=== PATIENT | female | born 1960 | race Caucasian/White ===

== ENCOUNTER 2017-01-31 11:22 | Inpatient (IN) ==
[2017-01-31] MEDS ORDERED: ZOFRAN IV ONE (11:49)
[2017-01-31] MEDS ORDERED: NS 1,000 ML IV ONE (11:49)
[2017-01-31] MEDS ORDERED: DILAUDID IV ONE (11:49)
--- NOTE | 2017-01-31 12:42 | Diag Imaging Result Doc PS360 ---
EXAM: FLAT/UPRIGHT ABD/1 VIEW CHEST HISTORY: Abd pain TECHNIQUE: Three views COMPARISON: 01/30/2017 FINDINGS: The lungs are well expanded. There is a right-sided portacatheter. No pneumothorax. No pneumonia. No free air beneath the diaphragm. There are coils in the upper right abdomen. No bowel obstruction. No organomegaly. Mild scoliosis. There are small mid right abdominal calcifications believed to be renal stones. Large dense nodules in the right upper quadrant. These correspond to calcified lesions within the liver on the recent CT. IMPRESSION: 1.Right upper quadrant large calcifications corresponding to calcified nodules in the liver 2.Small right abdominal calcifications may be renal stones or could be in small calcified nodules in the abdomen Electronically signed by Sean Cerrato 01/31/2017 12:40 PM
[2017-01-31 14:11] LABS: MANUAL DIFF NEEDED? NO
[2017-01-31 14:12] LABS: URINE MICRO REVIEW NEEDED? NO; URINE SOURCE CLEAN CATCH
[2017-01-31 14:20] LABS: BASO% 0.1 % (0.0-0.8); BILIRUBIN URINE NEGATIVE (NEGATIVE); BLOOD URINE TRACE (NEGATIVE); COLOR YELLOW; EOS# 0.01 X1000 (0.0-0.7); EOS% 0.1 % (0.0-10.0); GLUCOSE URINE NEGATIVE (NEGATIVE); HEMATOCRIT 41.1 % (37.0-47.0); HEMOGLOBIN 13.1 g/dL (12.0-16.0); LEUKOCYTES URINE MODERATE (NEGATIVE); LYMPH# 0.62 X1000 (1.2-3.4); LYMPH% 5.8 % (20.5-51.1); MCH 31.3 PG (27-31); MCHC 31.9 g/dL (33-37); MCV 98.1 FL (81-99); MONO# 1.37 X1000 (0.11-0.59); MONO% 12.9 % (1.7-9.3); MPV 9.6 FL (7.4-10.4); NEUT% 81.1 % (42.2-75.2); NITRITE URINE NEGATIVE (NEGATIVE); PLT 206 X1000 (130-400); PROTEIN URINE NEGATIVE (NEGATIVE); RBC 4.19 XMIL (4.2-5.4); SP GRAVITY URINE 1.011; TURBIDITY URINE HAZY (CLEAR); UROBILINOGEN URINE NORMAL (NORMAL)
[2017-01-31 14:22] LABS: UR EPITHELIAL CELLS <10 /HPF (<10); URINE BACTERIA NEGATIVE /HPF; URINE CULTURE NEEDED? YES
[2017-01-31] MEDS ORDERED: ROCEPHIN 1 GM/NS 1 GM/50 ML IVPB IV ONE (14:22)
[2017-01-31 14:33] LABS: AGAP 15; ALBUMIN 3.8 g/dL (3.5-5.0); ALKALINE PHOSPHATASE 99 U/L (32-104); AMYLASE 31 U/L (20-200); BUN 9 mg/dL (8-22); CALCIUM 9.1 mg/dL (8.8-10.2); CHLORIDE 97 mmol/L (98-107); COSMO 277; GOT 42 U/L (10-30); GPT 25 U/L (10-36); LIPASE 17 U/L (13-60); POTASSIUM 3.7 mmol/L (3.5-5.1); SODIUM 139 mmol/L (136-145); TCO2 27 mmol/L (25-35)
--- NOTE | 2017-01-31 14:54 | PROVIDER DOCUMENTATION ---
This chart was entered by Raquel Salinas Scribe, acting as scribe for Dario yIer MD. HPI-Abdominal Pain/GI Problem - General Chief Complaint: Abdominal Pain Stated Complaint: EXTREMITY PAIN Time Seen by Provider: 01/31/17 11:33 Source: patient Allergies/Adverse Reactions: Patient Allergies Allergy/AdvReac Type Severity Reaction Status Date / Time No Known Allergies Allergy Verified 01/31/17 14:14 Home Medications: Home Medication List Medication Instructions Recorded Confirmed Last Taken Type Diphenoxylate HCl/Atropine [Lonox 1 each PO DAILY 07/12/14 01/11/17 1 Day Ago History Tablet] Methadone 10 mg PO DAILY 07/12/14 01/11/17 01/11/17 07:00 History Metoclopramide [Reglan] 10 mg PO DAILY 07/12/14 01/11/17 01/11/17 History Cephalexin [Keflex] 500 mg PO BID 01/11/17 01/11/17 01/11/17 History Oxycodone HCl/Acetaminophen 1 each PO Q4-6H PRN PRN #30 tablet 01/11/17 Unknown Rx [Percocet 10-325 mg Tablet] Pantoprazole [Protonix] 40 mg PO DAILY@0700 01/11/17 01/11/17 1 Day Ago History - History of Present Illness-ABD Nature of Presenting Problems: 56 y/o F presents to ED cc of severe low abd pain. Pt is a pt of . Mushtaq spoke to prior to pt arrival. Pt has colon/rectum CA. Pt was seen last pm at [facility] for same pain. On exam pt is tearful and will not allow anybody to touch abd due to pain. Dr. Landin wants pt to be worked up and admitted to hospital. Pt has been on chemo x 3 yrs. Abd pain has increasingly gotten worse x 1 week. Abdominal Pain Onset Location: reports: periumbilical Pain Radiation: reports: no radiation Quality of Pain: reports: sharp, stabbing Severity in ED: reports: mild Onset/Duration: reports: gradual (x 1 week) Timing: reports: still present Activities at Onset: reports: light activity Modifying Factors: improves with: nothing Associated Symptoms: reports: other (abd pain). denies: chest pain, cough, diarrhea, genitourinary problems, muscle aches, sinus congestion/drainage, nausea, shortness of breath, vomiting Dark Stools Present?: reports: none noticed Rectal Bleeding: reports: none Rectal Pain: reports: none Emesis Description: reports: none Bruising or Bleeding Gums?: No Similar Symptoms Previously?: No Recently seen or treated by another doctor?: No Review of Systems - Adult - REVIEW OF SYSTEMS - ADULT Constitutional: denies: chills, fever Eyes: denies: discharge, blurred vision, double vision, redness Ears, Nose, Mouth & Throat: denies: ear pain, nose pain, loose teeth, throat pain Cardiovascular: denies: chest pain, irregular heart rate, orthopnea, palpitations Respiratory: denies: cough, pleurisy, shortness of breath, wheezing Gastrointestinal: reports: abdominal pain. denies: diarrhea, difficulty swallowing, frequent heartburn, nausea, vomiting Genitourinary: denies: discharge, frequency, hematuria, hesitency Musculoskeletal: denies: bone pain, back pain, joint swelling, muscle aches Integumentary: denies: hair loss, mole changes, nail changes, skin thickening Neurological: denies: dizziness/vertigo, headache/migraines, seizure, slurred speech Past History - Adult - PAST MEDICAL HISTORY-ADULT Review of Records: reports: Old Records Reviewed, Nursing Assessment Review Major Childhood Illnesses: reports: denies history Cardiovascular: reports: denies history Respiratory: reports: denies history Gastrointestinal: reports: cancer (colon stage 4 ) Obstetrical/Gynecological: reports: denies history Genitourinary: reports: denies history Musculoskeletal: reports: denies history Neurological: reports: denies history Endocrine/Immune: reports: denies history Other Conditions: reports: denies history - PRIOR SURGERIES/PROCEDURES Surgical/Procedure History: reports: other (colon resection) - IMMUNIZATION STATUS Childhood Immunizations: See Nurse Assessment Flu Vaccine: See Nurse Assessment - FAMILY HISTORY Family History: reviewed, not pertinent - SOCIAL HISTORY Smoking: denies, quit greater than 1 year Substance Use: none/never, denies Alcohol Use Frequency: never Physical Exam-General - PHYSICAL EXAM-ADULT Initial Vital Signs Reviewed: Yes - CONSTITUTIONAL General Appearance: appears well, alert, no apparent distress - EYES Eyes: pink conjunctivae - HEAD, EARS, NOSE, MOUTH & THROAT HENMT: moist mucous membranes, normal ENT inspection - NECK Neck: non-tender - RESPIRATORY Respiratory: chest non-tender, lungs clear, normal breath sounds - CARDIOVASCULAR Cardiovascular: normal peripheral pulses, regular rate, rhythm, no edema - GASTROINTESTINAL (ABDOMEN) Abdominal Exam: tenderness (low abd pain), other (will not allow to touch due to pain) - MUSCULOSKELETAL Back Exam: no CVA tenderness, no vertebral tenderness Extremity: normal range of motion, non-tender - SKIN Integumentary: normal color, normal turgor, warm/dry - NEUROLOGIC Neurologic: grossly normal, no motor/sensory deficits - PSYCHIATRIC Psych/Mental Status: oriented x 3, tearful Progress - PLAN OF CARE/RESULTS Progress/Plan/Lab Results: Vital Signs - 8 hr 01/31/17 11:53 Temperature 97.6 F Pulse Rate 89 Respiratory Rate 20 Blood Pressure 149/93 O2 Sat by Pulse Oximetry 97 Orders Category Date Time Status Saline Loc DIRECTED Care 01/31/17 11:49 Active NPO Diet 01/31/17 11:49 Active flat [FLAT/UPRIGHT ABD/1 VIEW CHEST] [RAD] Stat Exams 01/31/17 11:58 Taken AMYLASE [CHEM] Stat Lab 01/31/17 11:49 Uncollected CBC WITH ELECTRONIC DIFF [HEME] Stat Lab 01/31/17 11:49 Uncollected COMPREHENSIVE METABOLIC PANEL [CHEM] Stat Lab 01/31/17 11:49 Uncollected LACTATE, PLASMA [CHEM] Stat Lab 01/31/17 11:49 Uncollected LIPASE [CHEM] Stat Lab 01/31/17 11:49 Uncollected TROPONIN T Stat Lab 01/31/17 11:49 Uncollected URINALYSIS W/POSS RFLX CULT-1 [URINALYSIS] Stat Lab 01/31/17 11:49 Uncollected 0.9% Sodium Chloride Inj [Ns] 1,000 ml Med 01/31/17 11:49 Active IV 999 mls/hr Hydromorphone [Dilaudid] Med 01/31/17 11:49 Discontinued 1 mg IV NOW ONE Ondansetron [Zofran] Med 01/31/17 11:49 Discontinued 4 mg IV NOW ONE PLAN: TREAT PAIN , LABS , XRAY , MONITOR PT. Result Diagrams: 01/31/17 14:00 01/31/17 14:00 - REASSESSMENT Reassessment #1 Time Reassessed: 13:25 Status: worsening (pt is still in severe pain . crying aloud. nurse was found to give medication for pain) - XRAY 1 XRAY: Bilateral XRAY Study: Abdomen Impression: Abnormal (Right upper quadrant large calcifactions corresponding to calcified nodules in the liver. Small right abdominal calcifications may be renal stones or xould be in the small calcified nodules in the abdomen.- (radilogist)) - CONSULTS/PCP/HOSPITALIST Notification #1 *Consult/PCP/Hospitalist*: Joe/Vishnu Time Discussed: 14:52 Consult Disposition: Will see in ED, Admit Departure - Departure Date of Disposition Decision: 01/31/17 Time of Disposition Decision: 14:52 DIAGNOSIS: UTI (urinary tract infection), Colorectal cancer, stage IV, Intractable abdominal pain Disposition: ADMITTED INPATIENT 09 Certified Medical Emergency: Emergent Condition: Stable Referrals and Follow-Ups: Jose E Richards MD [Primary Care Provider] - - Critical Care Note This patient required my direct & personal management of CC.: No This chart was documented by the indicated scribe, (Raquel Salinas Scribe) and accurately reflects the services I performed and decisions made by me, Dario Iyer MD, as attested by the provider's signature.
--- NOTE | 2017-01-31 15:55 | Diag Imaging Result Doc PS360 ---
EXAM: ABD/PELVIS/PULM ARTERIES HISTORY: Abd pain/severe abd pain/stageIV colon cancer TECHNIQUE: COMPARISON: Most recent chest is 05/02/2016. Most recent abdomen and pelvis is 01/11/2017. FINDINGS: Chest: No pleural effusions. No cardiomegaly. No thoracic aortic aneurysm or dissection. Normal opacification of the left main pulmonary artery. There are filling defects within branches of the right lower lobe pulmonary artery. There are calcified left hilar lymph nodes. There are tiny scattered nodular densities bilaterally. I believe these have increased in size and number since the prior exam. No consolidation. No bronchiectasis. Abdomen and pelvis: There are multiple calcified hepatic masses with all other scattered hypodense hepatic lesions the appearance is fairly similar to that of the prior study. Spleen is not enlarged. Calcifications adjacent to or within the body of the pancreas are similar. There are multiple calcified. Caval and para-aortic lymph nodes. There are several noncalcified lymph nodes in the estevan hepatis. Irregular enhancement of the kidneys similar to the prior study. No hydronephrosis. No bowel obstruction. No abscess. The urinary bladder is distended and appears normal. Normal uterus. Trace pelvic fluid. IMPRESSION: Chest: 1. Right lower lobe pulmonary emboli 2. Worsening lung metastases Abdomen and pelvis: 1. Fairly stable hepatic and renal metastases 2.Stable adenopathy A preliminary report was called to the emergency room physician. Electronically signed by Sean Cerrato 01/31/2017 3:52 PM
[2017-01-31] MEDS ORDERED: LOVENOX 1 MG/KG SUBQ ONE (16:04)
--- NOTE | 2017-01-31 16:21 | HISTORY AND PHYSICAL ---
ONCOLOGIST: Dr. Theo Landin. PRIMARY CARE PROVIDER: Dr. Jose E Richards. CHIEF COMPLAINT: Abdominal pain. HISTORY OF PRESENT ILLNESS: Ms. Acosta is an unfortunate, 56-year-old female with a history of stage IV metastatic colon cancer with diffuse metastatic disease to the liver and bone. She underwent left colon resection on 04/14/[address] Kwong, biopsies were positive for colonic adenocarcinoma. She comes in today with multiple days of severe abdominal pain with mild nausea and no vomiting. Pain is in the epigastric region. She has not been able to have any bowel movements or pass flatus. She is also reporting some mild midsternal chest discomfort and shortness of breath and lower back pain. She had a CT of the abdomen and pelvis done on 01/11/2017 which showed new hepatic lesions which were suspicious for worsening metastatic disease, also renal lesions suspicious for worsening metastatic disease, but no other acute abnormality. When she got to the ER today, she had labs done which were largely unremarkable with the exception of a mildly elevated plasma lactate at 3.0. Urinalysis did show some moderate urine leukocytes and 10-20 WBC's. As such, the ER doctor put her on antibiotics. We have ordered a CT of the abdomen, pelvis and pulmonary arteries (to r/o PE) and we are now going to admit her for further treatment and evaluation. PAST MEDICAL HISTORY: 1. Stage IV metastatic colon cancer with metastatic lesions to the liver, kidney and bone. 2. Chronic pain secondary to cancer. 3. Chronic narcotic therapy. PAST SURGICAL HISTORY: She has had a partial bowel colon resection and stomach tumor resection. SOCIAL HISTORY: The patient quit smoking and drinking some time ago. She is and she lives alone. She is [place]. FAMILY HISTORY: Noncontributory. REVIEW OF SYSTEMS: Fourteen-point review of systems obtained and found to be negative with the exception of the HPI. HOME MEDICATIONS: Currently being compiled. ALLERGIES: No known drug allergies. PHYSICAL EXAMINATION: VITAL SIGNS: Blood pressure is 131/72, heart rate 78, respiratory rate 18, O2 saturation 99% on room air. Temperature is 97.6 degrees. GENERAL: This is a chronically ill and frail-appearing, 56-year-old female, lying in the hospital bed in no acute distress. NEUROLOGIC: She is awake and alert. She follows commands without focal deficits. HEENT: Head is atraumatic and normocephalic. Her pupils are equal, round, reactive to light. Oral mucosa is moist. NECK: Trachea is midline. There is no JVD or carotid bruits. CHEST: Clear to auscultation bilaterally. CV: Regular rate and rhythm. S1 and S2 is noted. No murmurs, gallops, clicks , rubs. GI: Slightly distended and epigastric tenderness to palpation is noted. Bowel sounds are hypoactive. Old midline abdominal incision noted. EXTREMITIES: Without edema, clubbing or cyanosis. Pulses are palpable bilaterally. DIAGNOSTIC DATA: Abdomen and pelvis CT is pending. Abdominal x-ray shows right upper quadrant large calcifications corresponding to calcified nodules in the liver. Small right abdominal calcifications may be renal stones or could be small calcified nodules in the abdomen. The chest x-ray is negative. WBC 10.6, hemoglobin 13.1, hematocrit 41, platelet count 206. Sodium 139, potassium 3.7, chloride 97, CO2 27, anion gap 15, BUN 9, creatinine 0.7, glucose 121. AST 42, ALT 25, alkaline phosphatase 99, troponin negative. Lactic acid 3.0. UA shows possible UTI. ASSESSMENT AND PLAN: 1. Abdominal pain: We are going to check a CT of the abdomen and pelvis now. Keep her on nothing by mouth and add intravenous fluids and antiemetics. Recommendations will be made after the CT. 2. Chest pain/SOB: Symptoms are atypical for coronary ischemia but suspicious for PE. We will check at CTA chest to rule out PE and treat accordingly. We will also trend cardiac enzymes. 3. Lactic acidosis: Possible urine source. Chest x-ray is negative. A CT of the abdomen and pelvis is pending. Will go ahead and put her on antibiotics for urinary tract infection. Urine cultures are pending. There is no sign of systemic response. No tachycardia, fever or hypotension. 4. Metastatic colon cancer: She is on chemotherapy for Dr. Landin. We are going to consult him for assistance. 5. Deep vein thrombosis prophylaxis will be provided with Lovenox. Further recommendations to follow. Dictated by MARIO Ford for Yvette Mares MD cc: MARIO Ford MD Moses Awoniyi, MD The patient was seen and examined by me. I agree with the assessment and plan as dictated. MTDD
[2017-01-31] MEDS ORDERED: LOVENOX ONE (16:25)
[2017-01-31] MEDS: NS 1,000 ML IV SCH (16:37)
[2017-01-31] MEDS: DILAUDID IV PRN ×2 (17:37→21:18)
[2017-01-31] MEDS: ZOFRAN IV PRN (21:17)
[2017-02-01] MEDS: NS 1,000 ML IV SCH (00:36)
[2017-02-01] MEDS: DILAUDID IV PRN ×8 (00:36→23:04)
[2017-02-01] MEDS: LOVENOX SUBQ SCH ×2 (04:14→17:23)
[2017-02-01] MEDS: ZOFRAN IV PRN ×3 (04:14→14:27)
[2017-02-01 07:06] LABS: HEMATOCRIT 35.9 % (37.0-47.0); HEMOGLOBIN 11.1 g/dL (12.0-16.0); MCH 30.4 PG (27-31); MCHC 30.9 g/dL (33-37); MCV 98.4 FL (81-99); MPV 10.3 FL (7.4-10.4); RBC 3.65 XMIL (4.2-5.4)
[2017-02-01 07:28] LABS: AGAP 12; BUN 7 mg/dL (8-22); CALCIUM 8.5 mg/dL (8.8-10.2); CHLORIDE 108 mmol/L (98-107); COSMO 293; POTASSIUM 3.4 mmol/L (3.5-5.1); SODIUM 149 mmol/L (136-145); TCO2 29 mmol/L (25-35)
[2017-02-01] MEDS ORDERED: D5W 1,000 ML IV SCH (08:33)
[2017-02-01] MEDS ORDERED: DULCOLAX PR ONE (12:50)
--- NOTE | 2017-02-01 13:21 | CONSULTATION ---
DATE OF CONSULTATION: 02/01/2017 REASON FOR CONSULTATION: Abdominal pain and history of colon cancer. HISTORY OF PRESENT ILLNESS: This is a 56-year-old female with known stage IV colon cancer with metastatic disease to the liver, bone, and lungs. She underwent a partial colectomy in [address] Kwong. She is undergoing chemotherapy currently, I believe with Dr. Landin. She reports chronic frequent lower abdominal crampy pain. She recently, over the last 3 days, has had new worsening generalized abdominal pain, especially in the upper abdomen, with some nausea, but no vomiting. She has not had a bowel movement in 4 days, which is not normal for her. No fever, chills, or diarrhea. She does also have some midsternal chest discomfort, shortness of breath, and back pain. PAST MEDICAL HISTORY: Stage IV colon cancer. Chronic pain syndrome, treated with narcotics. PAST SURGICAL HISTORY: Left colectomy. Total abdominal hysterectomy. ALLERGIES: No known drug allergies. HOME MEDICATIONS: Methadone, Reglan, Protonix, Percocet, Lonox. SOCIAL HISTORY: She quit drinking and smoking years ago. She lives alone. She is from [facility]. FAMILY HISTORY: Reviewed and noncontributory. REVIEW OF SYSTEMS: Ten systems reviewed and negative except as noted above. PHYSICAL EXAMINATION: Vital Signs: Temperature 98.3 degrees, pulse 72, respirations 13, blood pressure 118/54, O2 saturation 98%. General: She is a well-developed female in no distress who looks her stated age. HEENT: Normocephalic, atraumatic. Extraocular muscles intact. Pupils equal, round, reactive to light. Sclerae anicteric. Moist mucous membranes. Neck: Supple. No thyromegaly. Cardiovascular: Regular rate and rhythm. Respiratory: Bilateral equal breath sounds. No work of breathing. Gastrointestinal: Soft, nondistended. Mild generalized tenderness. No rebound, guarding, incisional hernia, or palpable abdominal mass. She does have bowel sounds. Her midline incision is well healed. Extremities: No clubbing, cyanosis, or edema. Skin: Warm and dry. Musculoskeletal: Moves all extremities equally and well. LABORATORY: White blood cell count 6, hemoglobin 11.1, platelet count 151,000. Sodium 149, potassium 3.4, chloride 108, CO2 of 29, BUN 7, creatinine 0.5, glucose 76, calcium 8.5. Liver function tests unremarkable. Amylase and lipase normal. Urinalysis shows some trace blood and white blood cells. IMAGING: CT of abdomen and pelvis was performed as well as a CTA of the chest. This was reviewed by me. She has worsening metastatic disease in the lungs, stable metastatic disease in the liver. There are some pulmonary emboli, apparently. She has no bowel obstruction or intra-abdominal abscess. There are multiple calcified enlarged lymph nodes throughout the abdominal cavity. ASSESSMENT AND PLAN: A 56-year-old female with abdominal pain and stage IV colon cancer. She appears to have a new diagnosis of pulmonary emboli, for which she is now on treatment doses of Lovenox. She may have some constipation, both radiographically and clinically. I think gentle bowel stimulation is appropriate. I do not think she has any significant cancer-related bowel obstruction other than perhaps narcotic-induced constipation. I will follow along with you. Thank you for the consultation. cc: Corey Snell MD
--- NOTE | 2017-02-01 13:50 | CONSULTATION ---
DATE OF CONSULTATION: 02/01/2017 REASON FOR CONSULT: This patient is known to us. She has metastatic colon cancer with mets to her liver and bones. HISTORY OF PRESENT ILLNESS: The patient is known to us quite well. She has metastatic colon cancer status post left hemicolectomy in 2013. She is status post Sir-Sphere radioembolization to bilateral hepatic lobes for metastases, and she is currently on FOLFOX. She had been on FOLFIRI and Vectibix but she progressed and FOLFOX was initiated on 01/29/2017. Apparently, the day after her initiation of her new chemotherapy, patient began having severe abdominal pain with no bowel movements over the last 4 days. She denies any flatus. She has some mild dyspnea and mid sternal chest pain. She denies any obvious fevers, any clinical bleeding, any vomiting. She did have some nausea but she never vomited. She came in for her worsening abdominal pain. Labs in the ER were unremarkable. They obtained an abdomen x-ray which showed no bowel obstruction, therefore, then obtain a CT chest, abdomen and pelvis which showed fairly stable hepatic and renal metastases with stable adenopathy; however, it did show a right lower lobe pulmonary emboli and worsening lung metastases. She has since been started on Lovenox. Her pain, however, continues to be quite intense. They have ordered Dilaudid 1 mg IV every 3 hours p.r.n. and, looking at her record, she has been requiring it every 3 hours. She is also on Rocephin currently. REVIEW OF SYSTEMS: Negative unless indicated in the HPI. PAST MEDICAL HISTORY: 1. Stage 4 colon cancer. 2. Chronic pain. She typically takes half of methadone a day and it controls her pain. 3. Depression. SOCIAL HISTORY: The patient has a remote history of smoking. Denies alcohol or illicit drugs. ALLERGIES: There are no known allergies. PHYSICAL EXAMINATION: Vital Signs are stable. Constitutional: This is a female, who appears to be in pain. She is cooperative. HEENT: Head is normocephalic, atraumatic. Pupils equal, round, symmetric. Cardiovascular: S1, S2 audible on auscultation with no heaves, lifts, thrills. Pulmonary:Breath sounds clear to auscultation. Normal respiratory effort. Abdomen is very tender to palpation all over. There are hypoactive bowel sounds x4. Abdomen is mildly distended. Extremities: There is no edema. Neurologic: Alert and oriented x3. Psychiatric: Appropriate to the situation. DIAGNOSTIC DATA: CT as above. White count is 6.36, hemoglobin 11.1, hematocrit is 35.9. Of note, her hemoglobin 24 hours prior was 13.1 and hematocrit 41.1. Platelet count was 151,000. Sodium is 149, potassium 3.4, chloride 108. BUN is 7, creatinine is 0.5. ASSESSMENT AND PLAN: 1. Metastatic colon cancer. Patient on FOLFOX. 2. Intractable abdominal pain. Etiology unclear. Will review CT scan with radiology. We have asked GI and surgery to see the patient and follow along and make further recommendations. 3. Anemia. Hemoglobin is down. It is 11.1; it was 13.1 yesterday. Again, we have asked GI and surgery consult and we will monitor closely. 4. Right pulmonary embolism. Currently on Lovenox. We will also obtain bilateral lower extremity Dopplers to rule out deep venous thrombosis. 5. Pain. She is on IV Dilaudid that has been helping so far. 6. Dyspnea, stable, likely secondary to above. Dictated by MARIO Iraheta for Theo Landin MD cc: MARIO Iraheta MD [facility]
[2017-02-01] MEDS ORDERED: POTASSIUM CHLORIDE 40 MEQ/SWI 40 MEQ/100 ML IVPB IV SCH (16:00)
--- NOTE | 2017-02-01 16:13 | PROGRESS NOTE ---
DATE: 02/01/2017 SUBJECTIVE: The patient complains of continued lower abdominal pain. The patient has had episodes of nausea and vomiting today and has not had a bowel movement yet. OBJECTIVE: Vital Signs: Temperature 98.3 degrees, blood pressure 118/54, heart rate 72, respirations 13, O2 saturations 98% on room air. General: This is a elderly female, lying in bed, in no acute distress. Head: Normocephalic atraumatic. Heart: S1, S2. Normal. Regular rate and rhythm. Lungs: Clear to auscultation bilaterally. Abdomen: Positive bowel sounds. Diffuse lower abdominal tenderness. Extremities: No edema. No cyanosis. No calf tenderness. Neurologic: The patient is alert and oriented x3. LABS: White blood cell count 6.3, hemoglobin 11, hematocrit 35, platelets 151,000. Sodium 149. Potassium 3.4. Chloride 108. CO2 29. BUN 7, creatinine 0.5. Glucose 76. ASSESSMENT AND PLAN: 1. Right lower lobe pulmonary embolism. Continue on Lovenox. 2. Abdominal pain with nausea and vomiting. Gastroenterology and General Surgery have been consulted. The patient has been started on a laxative therapy. 3. Hypokalemia. We will replace the patient's potassium. 4. Hypernatremia. The patient will be switched to D5 W. We will monitor the sodium closely. 5. Metastatic colorectal cancer. Aware. Dr. Lnadin is following. 6. Gastrointestinal prophylaxis. Continue on IV Protonix. cc: Yvette Mares MD
[2017-02-01] MEDS: SODIUM CHLORIDE 0.9% INJ SCH (17:42)
[2017-02-01] MEDS: MIRALAX PO SCH ×2 (17:43→20:27)
[2017-02-01] MEDS: PROTONIX IV SCH (17:43)
[2017-02-01] MEDS: COLACE PO SCH ×2 (17:43→20:27)
[2017-02-01] MEDS ORDERED: POTASSIUM CHLORIDE 40 MEQ/SWI 40 MEQ/100 ML IVPB IV ONE (18:00)
[2017-02-01] MEDS: D5W 1,000 ML IV SCH (20:30)
[2017-02-01] MEDS ORDERED: HEPARIN 25,000 UNITS/D5W 25,000 UNIT/250 ML IV.SOLN IV SCH (20:30)
[2017-02-01] MEDS ORDERED: MIRALAX PO SCH (21:00)
--- NOTE | 2017-02-01 21:24 | CONSULTATION ---
DATE OF CONSULTATION: 02/01/2017 REFERRING PHYSICIAN: Yvette Mares M.D. PRIMARY ONCOLOGIST: Theo Landin M.D. PRIMARY CARE PROVIDER: Jose E Richards M.D. PRIMARY SURGEON: Ponce Kwong M.D. INDICATION FOR CONSULTATION: Abdominal pain. HISTORY OF PRESENT ILLNESS: Ms. Acosta is a 56-year-old white female who is followed in our clinic for the management of stage IV metastatic colon cancer with diffuse metastatic disease. She presented with abdominal pain and blood in her stool. She underwent a colonoscopy in 2013 where we identified colon cancer at the splenic flexure. She underwent a left colon resection on 04/14/[address] Kwong. She was found to have metastatic disease with involvement in the bone and liver. She completed treatment and was doing well until earlier this year. She underwent a CT scan on 01/13/2017 that showed new hepatic lesions that were suspicious for worsening metastatic disease as well as new renal lesions suspicious for metastatic disease. She was thought to have possible nephritis in December. Because of abdominal pain intermittently over the last 2 weeks, she presented to the emergency room for further evaluation. Her labs were remarkable for elevated plasma lactate and a urinalysis showed moderate leukocytosis. Because of her pain, she underwent a CT scan of the chest, abdomen, pelvis. She was noted to have new pulmonary emboli in the right lower lobe with increasing tumor burden consistent with additional metastasis in the lung. In the abdomen, she had hepatic and renal metastasis, bilateral kidney stones and stable adenopathy. At the time of the history, the patient describes severe, episodic sharp pain that began in her left flank and passed into her suprapubic area. I spoke with Dr. Shayne Zuniga who reviewed her CT scan from admission and identified the presence of bilateral kidney stones. The patient was treated urgently with IV Dilaudid with interval improvement in her abdominal pain. We are asked to participate in her care. PAST MEDICAL HISTORY: 1. Stage IV metastatic colon cancer with active metastasis to the liver, kidney and bones. 2. Chronic pain secondary to her metastatic cancer. 3. Chronic narcotic therapy. 4. Gastroesophageal reflux disease. 5. Urinary tract infection. PAST SURGICAL HISTORY: 1. Left hemicolectomy. 2. Partial gastric resection secondary to tumor. SOCIAL HISTORY: The patient previously drank alcohol and smoked cigarettes. She stopped smoking before she relocated to the [facility]. She is and lives alone. She is [place]. FAMILY HISTORY: Negative for colon cancer. REVIEW OF SYSTEMS: Remarkable for severe episodic flank pain that radiates into the suprapubic area which is associated with nausea with vomiting and chills. In between the episodes of pain, she feels fairly well. MEDICATION ALLERGIES: None. HOME MEDICATIONS: 1. Protonix. 2. Percocet. 3. Reglan. 4. Methadone. 5. Lovenox. 6. Keflex. PHYSICAL EXAMINATION: General: On exam, she is in moderate distress. Vital signs: Her blood pressure is 138/68, pulse of 77, respiration 18, temperature of 97.7 degrees. She was administered Dilaudid 1 mg IV with interval improvement in her abdominal pain. Pulmonary: Her lungs are clear anteriorly. Posteriorly, she has decreased breath sounds in the right lower lobe. Cardiovascular: She has a regular rate and rhythm with no gallops or rubs. Abdomen: She has hypoactive bowel sounds. The abdomen is soft, with exquisite tenderness over the left flank that tracks to the suprapubic area suggesting that she is acutely passing kidney stones. Extremities: Bilaterally are negative for cyanosis, clubbing, or edema. Skin: Remarkable for decreased skin turgor and increased dryness compared to her previous visit. OBJECTIVE DATA: Reveals a hemoglobin of 11.1, with hematocrit of 35.9, and a white count of 6.37. She has 151,000 platelets. Sodium is 149, potassium 3.4, chloride 108, CO2 29, BUN 7, creatinine 0.5 with a glucose 76. Her calcium is 8.5, her B12 his 1929, folic acid is 32.5 and a TSH is 0.54. IMPRESSION: 1. Abdominal pain. 2. Likely acute nephrolithiasis. 3. Metastatic colon cancer. 4. Gastroesophageal reflux disease. RECOMMENDATION: 1. The patient was treated with intravenous Dilaudid with interval improvement in her abdominal pain. I would continue the Dilaudid on a scheduled basis. 2. I recommend that we increase her fluids to 100 mL/hour to help flush her kidneys. 3. I will consult Dr. Andrade in the morning for Urology to assist in her care. 4. Continue Protonix 40 mg intravenous q.12 hours. 5. Continue MiraLAX as she has opioid-induced constipation. She may require Movantik orally. 6. The patient has a newly diagnosed pulmonary embolus and is currently on Lovenox. In light of her newly diagnosed kidney stones, she may benefit from a heparin drip as she may require intervention. I will defer to the primary team and Dr. Landin for determining her anticoagulation therapy. 7. The patient had a recent colonoscopy in November that revealed benign colon polyps in the ascending colon. From a Gastroenterology perspective, I would monitor her clinical course in light of her urinary tract infection and kidney stones. We will continue to follow along with you. cc: MD Yvette Medrano MD Naveen T. Lobo, MD Moses Awoniyi, MD Robert C. Walker, MD MTDD
[2017-02-01] MEDS: POTASSIUM CHLORIDE 20 MEQ/SWI 20 MEQ/100 ML IVPB IV SCH (21:44)
[2017-02-01] MEDS ORDERED: HEPARIN IV ONE (22:33)
[2017-02-02] MEDS: POTASSIUM CHLORIDE 20 MEQ/SWI 20 MEQ/100 ML IVPB IV SCH (00:29)
[2017-02-02] MEDS: OFIRMEV 1000 MG/ISOTONIC SOLN 1,000 MG/100 ML BOTTLE IV SCH ×2 (00:51→06:25)
[2017-02-02] MEDS: PROTONIX IV SCH ×2 (03:13→15:17)
[2017-02-02] MEDS: SODIUM CHLORIDE 0.9% INJ SCH ×2 (03:14→15:17)
[2017-02-02] MEDS: DILAUDID IV PRN ×6 (03:15→21:38)
[2017-02-02 05:40] LABS: HEMATOCRIT 33.6 % (37.0-47.0); HEMOGLOBIN 10.7 g/dL (12.0-16.0); MCH 31.2 PG (27-31); MCHC 31.8 g/dL (33-37); MPV 9.4 FL (7.4-10.4); RBC 3.43 XMIL (4.2-5.4)
[2017-02-02 06:13] LABS: AGAP 11; BUN 5 mg/dL (8-22); CALCIUM 8.4 mg/dL (8.8-10.2); CHLORIDE 103 mmol/L (98-107); COSMO 274; POTASSIUM 3.8 mmol/L (3.5-5.1); SODIUM 139 mmol/L (136-145); TCO2 25 mmol/L (25-35)
[2017-02-02] MEDS ORDERED: HEPARIN IV ONE (06:16)
[2017-02-02] MEDS: D5W 1,000 ML IV SCH ×3 (06:29→16:56)
--- NOTE | 2017-02-02 07:29 | Diag Imaging Result Doc PS360 ---
EXAM: FLAT/UPRIGHT ABD/1 VIEW CHEST HISTORY: abdominal pain TECHNIQUE: Flat and upright abdomen with one view chest COMMENT: There is gas and stool in the colon. The small bowel and stomach are not distended. There is no evidence of organomegaly or mass. There are apparent nodular calcifications in the liver. This was also noted on the previous study of 01/31/2017. There are also calcifications around the upper lumbar spine. These are doubtless calcifications in nodes or residual lymphangiography contrast as seen on the CT scan of 01/11/2017. IMPRESSION: Constipation. Calcified or contrast opacified retroperitoneal nodes and hepatic metastases. Electronically signed by Landon Arellano 02/02/2017 7:26 AM
[2017-02-02] MEDS: COLACE PO SCH ×2 (09:51→21:38)
[2017-02-02] MEDS: MIRALAX PO SCH ×2 (09:51→21:38)
[2017-02-02] MEDS: ZOFRAN IV PRN ×2 (11:06→22:19)
--- NOTE | 2017-02-02 13:10 | PROGRESS NOTE ---
DATE: 02/02/2017 SUBJECTIVE: The patient says she feels better, but she continues to require IV pain medicine frequently. No nausea or vomiting. She had a small bowel movement. OBJECTIVE: She is afebrile. Vital signs are stable. General: She is alert and oriented x3 in no acute distress. CV: Regular rate and rhythm. Respiratory: No work of breathing. GI: Soft, nondistended. Minimally tender throughout. LABORATORY: White blood cell count 5.6, hemoglobin 10.7, platelet count 108,000. Chemistry profile unremarkable. ASSESSMENT AND PLAN: A 56-year-old female admitted with abdominal pain and nausea. She has a stage 4 colon cancer with hepatic and pulmonary metastases. She has new pulmonary emboli. The etiology of her abdominal pain is unclear; perhaps, some constipation; perhaps, simply cancer- related pain. I am going to try her on a clear liquid diet and see how she tolerates this. cc: Corey Snell MD
--- NOTE | 2017-02-02 14:39 | Extremity Venous Study ---
PROCEDURE NAME: Venous U/S Bilateral Legs - 02/01/2017 REFERRING PHYSICIAN: Dr. Mares. READING PHYSICIAN: Dr. Snell. LEATHER SPONGER: Jimenez. INDICATION: Pulmonary embolus. FINDINGS: The deep and superficial veins of both lower extremities were imaged throughout their course. They are compressible and patent. No thrombus is appreciated. There is forward flow throughout. INTERPRETATION: No evidence of deep or superficial venous thrombosis in either lower extremity. cc: MD Francisca Hurt CRNP
[2017-02-02] MEDS ORDERED: MAGNESIUM SULFATE 2 GM/S.W.I. 2 GM/50 ML IVPB IV ONE (14:52)
--- NOTE | 2017-02-02 15:20 | PROGRESS NOTE ---
DATE: 02/02/2017 SUBJECTIVE: The patient continues to complain of left flank pain with lower abdominal pain. She states that the pain med the patient has been taking the edge off of the pain. Her CT does show nephrolithiasis. OBJECTIVE: Vital Signs: Temperature 97 degrees, blood pressure 104/69, heart rate 75, respirations 20, and O2 saturation is 97% on room air. General: This is a middle-aged female, lying in bed in no acute distress. HEENT: Head normocephalic, atraumatic. Heart: S1 and S2 normal. Regular rate and rhythm. Lungs: Clear to auscultation bilaterally. No wheezes. No rales. No rhonchi. Abdomen: Positive bowel sounds. Soft, nontender, nondistended. Extremities: No edema. No cyanosis. No calf tenderness. Neurologic: The patient is alert and oriented x3. LABORATORY: White blood cell count 5.6, hemoglobin 10, hematocrit 33, platelets 108,000. Sodium 139, potassium 3.8, chloride 103, CO2 of 25, BUN 5, creatinine 0.5, magnesium 1.2. ASSESSMENT AND PLAN: 1. Nephrolithiasis. The CT was reviewed a second time by who stated that the patient has kidney stones. Will defer to the urologist for further recommendations. 2. Pulmonary embolism. Continue on the heparin drip. 3. Metastatic colorectal cancer. Management as per Dr. Landin. 4. Constipation. Continue on scheduled laxative therapy. Gastroenterology and General Surgery are following. 5. Hypomagnesemia. Will replace the patient's magnesium. 6. Hypernatremia. Resolved. 7. Gastrointestinal prophylaxis. Continue on IV Protonix. cc: Yvette Mares MD [facility]
--- NOTE | 2017-02-02 19:19 | CONSULTATION ---
DATE OF CONSULTATION: 02/02/2017 ATTENDING AND REFERRING PHYSICIAN: Hospitalist. HISTORY OF PRESENT ILLNESS: This 56-year-old female has metastatic colon cancer. She has metastatic lesions in the liver, lungs, kidneys, adrenal glands and possibly the pancreas. She was admitted with severe abdominal pain in the right upper quadrant and right lower thoracic area. A CT scan 2 days ago revealed the metastatic lesions as well as a pulmonary embolism in the right lower lung. The patient states the pain has been going on for several years and has slowly gotten worse. She denies any previous history of kidney stones. She states she has an occasional urinary tract infection. She has had no hematuria. She denies any previous urologic surgery. PAST MEDICAL HISTORY: Gastroesophageal reflux disease. CURRENT MEDICATIONS: Documented on the chart. PAST SURGICAL HISTORY: Colon resection, partial stomach resection. SOCIAL HISTORY: Previous cigarette and alcohol use. None recent. REVIEW OF SYSTEMS: No known drug allergies. She states she lives alone and usually does well. She has no history of hypertension, heart disease, diabetes, strokes or seizures. PHYSICAL EXAMINATION: General: A normally developed, well-nourished, age apparent, white female, oriented in all ways and cooperative. HEENT: Normal for age. Lungs: Clear. Cardiovascular: Regular rate and rhythm. Abdomen: Protuberant, soft. Direct tenderness in the right upper and lower quadrants. No guarding or rebound. Genitourinary Examination: Deferred. Extremities: No clubbing, cyanosis, or edema. Neurologic: No focal deficits. LABORATORY EVALUATION: She has a white count of 5.68, hemoglobin 10.7, hematocrit of 33.6 and platelets are 108,000. Serum electrolytes are normal. BUN 5, creatinine 0.5. CT scan on December 04, January 12, January 31 did not have any evidence of kidney stones. There was no hydronephrosis of either kidney. IMPRESSION: Stage T4 colon cancer with metastatic lesions in the lungs, liver, kidneys, adrenal glands and possible pancreas. Right lung pulmonary embolism. The abdominal pain is not due to renolithiasis. There is no evidence of stones or hydronephrosis on [address] scans[address] Recommend pain control. Nothing to add from a urological point of view. Thank you for this consultation. cc: Papa Orr MD
[2017-02-03] MEDS: D5W 1,000 ML IV SCH ×5 (00:04→19:09)
[2017-02-03] MEDS: DILAUDID IV PRN ×6 (00:56→19:36)
--- NOTE | 2017-02-03 04:09 | PROGRESS NOTE ---
DATE: 02/03/2017 SUBJECTIVE: The patient states that she is feeling better today. However, she continues to have episodes of sharp pain that radiates around from her flank to her suprapelvic area. Otherwise, the patient states that she is clinically stable. OBJECTIVE: On exam, her blood pressure is 104/57, pulse 96, respirations 17, temperature of 97.8 degrees. The remainder of her exam was deferred. OBJECTIVE DATA: Reveals a hemoglobin of 10.7, hematocrit of 33.6, and a white count of 5.68 with 108,000 platelets. Her sodium is 139, potassium 3.8, chloride 103, CO2 of 25, BUN 5, creatinine 0.5 with a glucose of 88, and calcium of 8.4. Her magnesium is 1.2 and a PTT is 78.1. RECOMMENDATION: 1. Continue Protonix 40 mg IV q.12 hours. 2. Continue MiraLAX for opioid induced constipation. 3. Consider Levsin 0.125 mg sublingual. 4. Continue Dilaudid as needed for pain control. 5. Additional recommendations to follow based on her clinical course. cc: MD Corey Gramajo MD Katherine Takundwa, MD Jeanette Keith, MD
[2017-02-03] MEDS: PROTONIX IV SCH ×2 (06:16→22:18)
[2017-02-03] MEDS: HEPARIN 25,000 UNITS/D5W 25,000 UNIT/250 ML IV.SOLN IV SCH (06:16)
[2017-02-03] MEDS: SODIUM CHLORIDE 0.9% INJ SCH ×2 (06:16→22:18)
[2017-02-03 07:17] LABS: BASO% 0.2 % (0.0-0.8); EOS# 0.12 X1000 (0.0-0.7); EOS% 1.8 % (0.0-10.0); HEMATOCRIT 34.8 % (37.0-47.0); HEMOGLOBIN 11.4 g/dL (12.0-16.0); LYMPH# 0.54 X1000 (1.2-3.4); LYMPH% 8.3 % (20.5-51.1); MANUAL DIFF NEEDED? YES; MCH 30.8 PG (27-31); MCHC 32.8 g/dL (33-37); MCV 94.1 FL (81-99); MONO# 0.16 X1000 (0.11-0.59); MONO% 2.5 % (1.7-9.3); MPV 10.5 FL (7.4-10.4); NEUT% 87.2 % (42.2-75.2); PLT 136 X1000 (130-400)
[2017-02-03 07:30] LABS: AGAP 10; BUN 3 mg/dL (8-22); CALCIUM 8.2 mg/dL (8.8-10.2); CHLORIDE 99 mmol/L (98-107); COSMO 270; POTASSIUM 2.9 mmol/L (3.5-5.1); SODIUM 136 mmol/L (136-145); TCO2 27 mmol/L (25-35)
[2017-02-03] MEDS ORDERED: KLOR-CON PO ONE (07:39)
[2017-02-03 07:47] LABS: BANDS 8 % (0-1); LYMPHS 6 % (21-51); MONO 2 % (1-9)
[2017-02-03] MEDS: COLACE PO SCH ×2 (08:44→22:19)
[2017-02-03] MEDS: MIRALAX PO SCH ×2 (08:44→22:19)
[2017-02-03] MEDS: MS CONTIN PO SCH ×2 (11:18→22:18)
[2017-02-03] MEDS: ZOFRAN IV PRN (14:57)
--- NOTE | 2017-02-03 15:02 | PROGRESS NOTE ---
DATE: 02/03/2017 Ms. Shahla Acosta is a 56-year-old white female from [place] who has recurrent colon cancer intraabdominally. She has had abdominal pain and a possible partial obstruction because of recurrent cancer. She has had multiple abdominal surgeries and her midline incision is well healed. Her abdomen is not distended but soft and she is on clear liquids. We will continue to try to advance her diet. cc: Taniya Boyle MD
--- NOTE | 2017-02-03 16:54 | PROGRESS NOTE ---
DATE: 02/03/2017 SUBJECTIVE: The patient continues to complain of lower abdominal pain. She states that it is relieved by the Dilaudid. OBJECTIVE: Vital signs: Temperature 98.4, blood pressure 133/73, heart rate 81, respirations 20, O2 saturation 98% on room air. General: This is an elderly female lying in bed in no acute distress. Head: Normocephalic, atraumatic. Heart: S1, S2 normal. Regular rate and rhythm. Lungs: Clear to auscultation bilaterally. Abdomen: Positive bowel sounds. Soft, nontender, nondistended. Extremities: No edema. No cyanosis. No calf tenderness. Neurologic: The patient is alert and oriented x3. LABORATORY DATA: Hemoglobin 11, hematocrit 34, platelets 136, white blood cell count 6.4. Sodium 136, potassium 3.9, chloride 99, CO2 of 24, BUN 3, creatinine 0.6, glucose 120. ASSESSMENT AND PLAN: 1. Metastatic colorectal cancer. The patient's CT of the abdomen and pelvis showed increased involvement of the tumor in the mesentery. Management as per Dr. Landin. 2. Abdominal pain. The patient's pain is thought to be secondary to increased tumor involvement in the mesentery. Will start the patient on MS Contin for long-acting pain control. Will eventually add a short-acting pain medication for breakthrough pain. Will also continue on scheduled laxatives. The patient is having regular bowel movements. 3. Pulmonary embolism. Will continue on Lovenox. 4. Hypokalemia. Will replace the patient's potassium. 6. Gastrointestinal prophylaxis. Continue on IV Protonix. 7. Will consult physical therapy. cc: Yvette Mares MD
[2017-02-03] MEDS: DULCOLAX PR SCH (22:19)
[2017-02-04] MEDS: DILAUDID IV PRN ×7 (04:15→20:45)
[2017-02-04] MEDS: HEPARIN 25,000 UNITS/D5W 25,000 UNIT/250 ML IV.SOLN IV SCH (05:41)
[2017-02-04] MEDS ORDERED: MAGNESIUM SULFATE 2 GM/S.W.I. 2 GM/50 ML IVPB IV ONE (07:45)
[2017-02-04] MEDS: PROTONIX IV SCH ×2 (08:00→21:45)
[2017-02-04] MEDS: COLACE PO SCH ×2 (08:00→21:44)
[2017-02-04] MEDS: MIRALAX PO SCH ×2 (08:00→21:46)
[2017-02-04] MEDS: SODIUM CHLORIDE 0.9% INJ SCH ×2 (08:00→21:45)
[2017-02-04] MEDS: D5W 1,000 ML IV SCH ×3 (08:10→21:44)
[2017-02-04] MEDS: MS CONTIN PO SCH ×2 (09:25→21:44)
--- NOTE | 2017-02-04 10:24 | PROGRESS NOTE ---
DATE: 02/04/2017 DATE: 02/04/2017. SUBJECTIVE: Ms. Shahla Acosta has a history of colon cancer. OBJECTIVE: Her abdomen is soft, but she still has intermittent abdominal pain. She states that she had a small bowel movement and flatus over the last 24 hours. We are feeding her a regular diet and she does not take much of her meals. Her potassium is slightly low. BUN and creatinine are 3 and 0.6. Her heart rate is 89, blood pressure 108/74, O2 saturation 97%. She is afebrile. She is receiving IV pain medicine. Her white blood cell count has been normal. Her hematocrit has been about 35%. She is receiving heparin. PTT is 82. PLAN: Supportive care. No plans for surgery this weekend. cc: Taniya Boyle MD
[2017-02-04] MEDS ORDERED: DILAUDID IV PRN (11:28)
[2017-02-04] MEDS ORDERED: DILAUDID IV ONE (11:28)
[2017-02-04] MEDS ORDERED: MS CONTIN PO ONE ×3 (12:34→13:15)
[2017-02-04] MEDS: ZOFRAN IV PRN ×2 (13:41→21:56)
--- NOTE | 2017-02-04 17:29 | PROGRESS NOTE ---
DATE: 02/04/2017 SUBJECTIVE: The patient complains 10/10 pain in the left lower quadrant as well as radiation to the left side of her back. She has been getting IV Dilaudid every 3 hours with little to no improvement in her pain. OBJECTIVE: Vital Signs: Temperature 98.2 degrees, blood pressure 124/69, heart rate 79, respirations 15, O2 saturation 97% on room air. General: This is an elderly female lying in bed in no acute distress. Head: Normocephalic, atraumatic. Heart: S1, S2. Normal. Regular rate and rhythm. Lungs: Clear to auscultation bilaterally. No wheezes, no rales. No rhonchi. Abdomen: Positive bowel sounds. Soft. Tenderness in the left lower quadrant. Back: The patient is tender to palpation in the left flank region. Neurologic: The patient is alert, oriented x3. LABS: Potassium 4.1. ASSESSMENT AND PLAN: 1. Abdominal pain. The patient continues to have excruciating abdominal pain and is requiring large amounts of intravenous pain medication with very little relief. The patient was started on MS Contin 30 mg b.i.d. on Sunday however her pain continues to escalate. Will increase the patient's MS Contin dosage and continue with Dilaudid for breakthrough pain. General surgery is following. 2. Metastatic colorectal cancer. Aware. Dr. Landin is following. 3. Pulmonary embolism. Continue on a heparin drip. 4. Gastrointestinal prophylaxis. Continue on IV Protonix. 5. Continue with physical therapy as able. cc: Yvette Mares MD
--- NOTE | 2017-02-04 17:55 | PROGRESS NOTE ---
DATE: 02/04/2017 SUBJECTIVE: The patient continues to have episodic 10/10 pain that begins in the left flank and radiates around to the low pelvis. She is able to track her ureters around her abdomen into her pelvis and notes suprapubic pain. She denies hematuria, fevers and chills. When she has the severe pain, she is nauseated. She is not currently vomiting. She continues to require Dilaudid every 3 hours with minimal improvement in the pain. However, she states that the Dilaudid does take the edge off. OBJECTIVE: On exam, she is uncomfortable but in no acute distress. Her blood pressure is 124/69, pulse 79, respirations 15, temperature of 98.2 degrees. The remainder of her exam was deferred. LABORATORY DATA: From today is remarkable for a PTT of 82.1, potassium 4.1, and magnesium 1.4. RECOMMENDATION: 1. From a GI perspective, the patient continues to have abdominal pain that is episodic. This seems inconsistent clinically with pain from a tumor which is a constant mass. It is difficult to tell if she is having spasms versus kidney stones. However, her CT scan is not consistent with severe kidney stones. Please begin Levsin 0.125 mg sublingual 4 times a day to see if this will improve her symptoms. 2. Continue pain control. 3. Continue MiraLAX 17 g p.o. b.i.d. as she has opioid induced constipation. cc: Jose E Richards MD MTDD
[2017-02-04] MEDS ORDERED: MS CONTIN PO SCH (21:00)
[2017-02-04] MEDS: DULCOLAX PR SCH (21:45)
[2017-02-04] MEDS: LEVSIN-SL SL SCH (21:51)
[2017-02-05] MEDS: DILAUDID IV PRN ×5 (03:58→22:27)
[2017-02-05] MEDS: D5W 1,000 ML IV SCH ×2 (05:53→12:00)
[2017-02-05] MEDS: ZOFRAN IV PRN ×3 (06:25→20:17)
[2017-02-05 06:36] LABS: MANUAL DIFF NEEDED? NO
[2017-02-05 07:16] LABS: AGAP 9; ALBUMIN 2.8 g/dL (3.5-5.0); ALKALINE PHOSPHATASE 79 U/L (32-104); BUN 2 mg/dL (8-22); CALCIUM 8.9 mg/dL (8.8-10.2); CHLORIDE 98 mmol/L (98-107); COSMO 271; GOT 19 U/L (10-30); GPT 11 U/L (10-36); LIPASE 12 U/L (13-60); POTASSIUM 3.1 mmol/L (3.5-5.1); SODIUM 137 mmol/L (136-145); TCO2 30 mmol/L (25-35); TOTAL BILIRUBIN 0.61 mg/dL (0.20-1.00); TOTAL PROTEIN 5.5 g/dL (6.3-8.3)
[2017-02-05] MEDS ORDERED: KLOR-CON PO ONE (07:30)
[2017-02-05] MEDS ORDERED: SODIUM CHLORIDE 0.9% INJ PRN (08:30)
[2017-02-05] MEDS: PROTONIX IV SCH ×2 (08:39→20:18)
[2017-02-05] MEDS: SODIUM CHLORIDE 0.9% INJ SCH ×2 (08:39→20:19)
[2017-02-05 08:44] LABS: BASO% 0.2 % (0.0-0.8); EOS# 0.06 X1000 (0.0-0.7); EOS% 1.2 % (0.0-10.0); HEMATOCRIT 32.4 % (37.0-47.0); HEMOGLOBIN 10.4 g/dL (12.0-16.0); LYMPH# 0.46 X1000 (1.2-3.4); LYMPH% 9.3 % (20.5-51.1); MCH 30.6 PG (27-31); MCHC 32.1 g/dL (33-37); MCV 95.3 FL (81-99); MONO% 8.1 % (1.7-9.3); MPV 10.7 FL (7.4-10.4); NEUT% 81.2 % (42.2-75.2); PLT 117 X1000 (130-400)
[2017-02-05] MEDS: PHENERGAN IV PRN (08:45)
[2017-02-05] MEDS ORDERED: MAGNESIUM SULFATE 2 GM/S.W.I. 2 GM/50 ML IVPB IV ONE (09:08)
[2017-02-05] MEDS: MIRALAX PO SCH ×2 (10:24→20:17)
[2017-02-05] MEDS: HEPARIN 25,000 UNITS/D5W 25,000 UNIT/250 ML IV.SOLN IV SCH ×2 (10:46→10:47)
[2017-02-05] MEDS: MS CONTIN PO SCH ×2 (11:01→21:10)
[2017-02-05] MEDS: LEVSIN-SL SL SCH ×4 (11:02→20:23)
[2017-02-05] MEDS: COLACE PO SCH ×2 (11:02→20:23)
--- NOTE | 2017-02-05 12:28 | PROGRESS NOTE ---
DATE: 02/05/2017 SUBJECTIVE: The patient had some nausea this morning but received some nausea medication. States that she feels okay. She states that her pain is not as severe today as it was yesterday. OBJECTIVE: Vital Signs: Temperature 97.9 degrees, blood pressure 101/56, heart rate 86, respirations 19, O2 saturation is 100% on room air. General: This is an elderly female, lying in bed, in no acute distress. Head: Normocephalic, atraumatic. Heart: S1, S2. Normal. Regular rate and rhythm. Lungs: Clear to auscultation bilaterally. No wheezes. No rales. No rhonchi. Abdomen: Positive bowel sounds. Soft, nontender, nondistended. Extremities: No edema. No cyanosis. No calf tenderness. Neurologic: The patient is alert oriented x3. LABS: White blood cell count 4.9, hemoglobin 10, hematocrit 32, platelets 117,000. Potassium 3.1, sodium 137, chloride 98, CO2 30, BUN 2, creatinine 0.6, glucose 122. Lipase is 12. ASSESSMENT AND PLAN: 1. Abdominal pain. The patient is currently on long-acting morphine plus Dilaudid for breakthrough pain. We will continue to titrate the patient's pain medication for better pain control. 2. Pulmonary embolism. Continue on a heparin drip. 3. Hypokalemia. Will replace the patient's potassium. 4. Hypomagnesemia. Will replace the patient's magnesium. 5. Anemia of chronic disease. Stable. 6. Thrombocytopenia. Will monitor the patient's platelet count. 7. Metastatic colon cancer. Management as per Dr. Landin. cc: Yvette Mares MD
--- NOTE | 2017-02-05 13:57 | PROGRESS NOTE ---
DATE: 02/05/2017 SUBJECTIVE: The patient says her abdominal pain is improved; however, she has had nausea and vomiting this morning. OBJECTIVE: Vital Signs: She is afebrile. Vital signs are stable. General: Alert orient x3. No acute distress. Cardiovascular: Regular rate and rhythm. Respiratory: No work of breathing. Gastrointestinal: Soft, nontender, nondistended. She does have bowel sounds. Her labs were reviewed. ASSESSMENT AND PLAN: This patient with known colorectal cancer, which is metastatic, now has persistent worsened migratory intermittent abdominal pain. The etiology is unclear. She does not appear to have any infection or obstructive process in her GI tract. Constipation has been a consideration and perhaps just overall pain from the burden of disease in her abdomen. We will continue to follow along. cc: Corey Snell MD
[2017-02-06] MEDS: COLACE PO SCH ×3 (00:20→22:36)
[2017-02-06] MEDS: MIRALAX PO SCH ×3 (00:20→22:35)
[2017-02-06] MEDS: DULCOLAX PR SCH ×2 (00:20→22:36)
[2017-02-06] MEDS: DILAUDID IV PRN ×4 (00:29→19:03)
[2017-02-06] MEDS: D5W 1,000 ML IV SCH ×2 (00:29→13:35)
[2017-02-06] MEDS: SODIUM CHLORIDE 0.9% INJ SCH ×3 (00:42→22:36)
[2017-02-06] MEDS: PHENERGAN IV PRN (00:42)
[2017-02-06 07:18] LABS: AGAP 9; BASO% 0.1 % (0.0-0.8); BUN 3 mg/dL (8-22); CALCIUM 8.6 mg/dL (8.8-10.2); CHLORIDE 98 mmol/L (98-107); COSMO 273; EOS# 0.06 X1000 (0.0-0.7); EOS% 0.6 % (0.0-10.0); HEMATOCRIT 32.6 % (37.0-47.0); HEMOGLOBIN 10.5 g/dL (12.0-16.0); IMM GRAN# 0.02 X1000 (0.0-0.04); IMM GRAN% 0.2 % (0.0-0.5); LYMPH# 0.51 X1000 (1.2-3.4); LYMPH% 5.2 % (20.5-51.1); MANUAL DIFF NEEDED? YES; MCH 30.9 PG (27-31); MCHC 32.2 g/dL (33-37); MCV 95.9 FL (81-99); MONO# 0.72 X1000 (0.11-0.59); MONO% 7.4 % (1.7-9.3); MPV 10.6 FL (7.4-10.4); NEUT% 86.5 % (42.2-75.2); PLT 129 X1000 (130-400); POTASSIUM 3.7 mmol/L (3.5-5.1); SODIUM 138 mmol/L (136-145); TCO2 31 mmol/L (25-35)
[2017-02-06 07:29] LABS: BANDS 2 % (0-1); LYMPHS 2 % (21-51); MONO 2 % (1-9)
[2017-02-06] MEDS: LEVSIN-SL SL SCH ×4 (08:51→22:36)
[2017-02-06] MEDS: PROTONIX IV SCH ×2 (08:51→22:36)
[2017-02-06] MEDS: MS CONTIN PO SCH ×2 (08:52→22:34)
[2017-02-06] MEDS: HEPARIN 25,000 UNITS/D5W 25,000 UNIT/250 ML IV.SOLN IV SCH (15:42)
--- NOTE | 2017-02-06 17:52 | PROGRESS NOTE ---
DATE: 02/06/2017 SUBJECTIVE: The patient says she is feeling good this morning with not much pain. She ate breakfast and lunch and then she got up and walked around this afternoon and started having waves of crampy pain mostly on the left side and upper abdomen. OBJECTIVE: Vital signs: She is afebrile. Vital signs are stable. General: Alert orient x3. No acute distress. Gastrointestinal: Soft, nondistended. Mild tenderness diffusely. No rebound or guarding. LABORATORY: White blood cell count 9.7, hemoglobin 10.5. Electrolytes reviewed and unremarkable. ASSESSMENT/PLAN: A 56-year-old female with unexplained abdominal pain. There do not appear to be any surgical indications. This is likely secondary to the burden of cancer in her abdomen and palliative measures are likely to be our only option. She can be discharged at the discretion of the primary team. cc: Corey Snell MD
--- NOTE | 2017-02-06 18:29 | PROGRESS NOTE ---
DATE: 02/06/2017 SUBJECTIVE: When I evaluated this patient she was complaining of mild abdominal pain. She has been feeling better but the pain is up and down. Oncology Department evaluated this patient today and they state that if this patient is doing about the same tomorrow she is going to be able to be discharged. OBJECTIVE: Vital Signs: Temperature 98.6 degrees, pulse 83, respiratory rate 20, blood pressure 122/65, oxygen saturation 96 on room air. HEENT: Head normocephalic. No trauma. PERRLA. Neck: Supple. No JVD. No masses. Central trachea. Chest: Clear to auscultation. No wheezing. No rales. Abdomen: Soft. Multiple scars, nondistended. Mild generalized tenderness to palpation mostly at the level of the lower abdomen. Extremities: No edema. No clubbing. No cyanosis. Neurological: The patient is alert and oriented x3. No focal deficits. LABORATORY: WBC 9.7, hemoglobin 10.5, hematocrit 32.6, platelets 129,000. Sodium 138, potassium 3.7, chloride 98, bicarbonate 31, BUN 3, creatinine 0.6, glucose 119, calcium 8.6. ASSESSMENT AND PLAN: 1. Abdominal pain. This is likely related to her current metastatic cancer. It looks like the medication is working. We will continue with the same management for now. Hopefully this patient can be discharged tomorrow if everything is about the same. 2. Pulmonary embolism. Continue with heparin drip. I will switch to oral medication tomorrow. 3. Hypokalemia. Resolved. 4. Anemia of chronic disease. Stable. 5. Thrombocytopenia. Stable. 6. Metastatic colon cancer as per Dr. Landin. cc: Tom Whitt MD
[2017-02-07] MEDS: D5W 1,000 ML IV SCH ×2 (03:03→04:35)
[2017-02-07] MEDS: DILAUDID IV PRN ×3 (03:05→12:21)
[2017-02-07] MEDS: ZOFRAN IV PRN ×2 (03:05→12:21)
[2017-02-07 06:39] LABS: MANUAL DIFF NEEDED? NO
[2017-02-07 06:45] LABS: BASO% 0.1 % (0.0-0.8); EOS# 0.07 X1000 (0.0-0.7); HEMATOCRIT 31.6 % (37.0-47.0); LYMPH# 0.63 X1000 (1.2-3.4); LYMPH% 8.7 % (20.5-51.1); MCH 30.8 PG (27-31); MCHC 31.6 g/dL (33-37); MCV 97.2 FL (81-99); MONO# 1.15 X1000 (0.11-0.59); MONO% 15.9 % (1.7-9.3); MPV 10.5 FL (7.4-10.4); NEUT% 74.3 % (42.2-75.2); PLT 134 X1000 (130-400); RBC 3.25 XMIL (4.2-5.4)
[2017-02-07 07:01] LABS: AGAP 9; BUN 5 mg/dL (8-22); CALCIUM 8.9 mg/dL (8.8-10.2); CHLORIDE 96 mmol/L (98-107); COSMO 270; POTASSIUM 3.6 mmol/L (3.5-5.1); SODIUM 136 mmol/L (136-145); TCO2 31 mmol/L (25-35)
[2017-02-07] MEDS: COLACE PO SCH (09:34)
[2017-02-07] MEDS: HEPARIN 25,000 UNITS/D5W 25,000 UNIT/250 ML IV.SOLN IV SCH (09:34)
[2017-02-07] MEDS: LEVSIN-SL SL SCH ×3 (09:34→16:45)
[2017-02-07] MEDS: MIRALAX PO SCH (09:35)
[2017-02-07] MEDS: PROTONIX IV SCH (09:35)
[2017-02-07] MEDS: SODIUM CHLORIDE 0.9% INJ SCH (09:35)
[2017-02-07] MEDS: MS CONTIN PO SCH (09:48)
[2017-02-07] MEDS ORDERED: MS CONTIN PO PRN (10:47)
[2017-02-07] MEDS ORDERED: PHENERGAN PO PRN (10:50)
[2017-02-07 12:51] VITALS: BP 124/66
[2017-02-07] MEDS ORDERED: XARELTO PO SCH (17:00)
[2017-02-07] MEDS ORDERED: HEPARIN INJ ONE (17:30)
[2017-02-07] MEDS ORDERED: HEPARIN ONE (17:38)
--- NOTE | 2017-02-08 15:46 | DISCHARGE SUMMARY ---
ADMISSION DATE: 01/31/2017 DISCHARGE DATE: 02/07/2017 ADMISSION DIAGNOSES: 1. Abdominal pain. 2. Atypical chest pain with shortness of breath, suspected pulmonary embolus. 3. Lactic acidosis. 4. Metastatic colon cancer. DISCHARGE DIAGNOSES: 1. Right lower lobe pulmonary emboli. 2. Abdominal pain with nausea, vomiting. 3. Hypokalemia. 4. Hypernatremia. 5. Metastatic colorectal cancer. 6. Constipation. 7. Hypomagnesemia. 8. Iron deficiency anemia. 9. Thrombocytopenia. PROCEDURES: None. CONSULTATIONS: 1. Dr. Theo Landin for colorectal cancer, anemia and thrombocytopenia. 2. Dr. Corey Snell for possible bowel obstruction. 3. Dr. Minnie Méndez for abdominal pain. 4. Dr. Papa Orr for possible renal lithiasis. HOSPITAL COURSE: Ms. Shahla Acosta is a 56-year-old female with a history of stage IV metastatic colon cancer that presented to the ED with chief complaints of severe abdominal pain with nausea, midsternal chest discomfort, shortness of breath and lower back pain. Workup revealed that she was hemodynamically stable with unremarkable lab values except for an elevated lactate of 3.0. CTA of the abdomen and pelvis revealed right lower pulmonary emboli. At that time, she was placed on IV heparin therapy. Dr. Méndez was consulted regarding abdominal pain. It also revealed that she had worsening lung metastasis and hepatic and renal metastasis. At that time, she was started on a heparin drip. During her stay, she had Dr. Méndez who following her for abdominal pain. Her recommendations were to continue Dilaudid on a scheduled basis. Continue her IV fluids at 100 per hour, Protonix twice daily, MiraLAX for the opioid induced constipation and Movantik. Given that she had a recent colonoscopy in November, no further procedures were performed. We consulted Dr. Snell for potential bowel obstruction but that was ruled out for constipation. Dr. Orr was consulted for possible renal lithiasis. Dr. Orr felt like the abdominal pain was not due to renal lithiasis and felt there was no evidence of stones or hydronephrosis on the last [address]. He recommended pain control and no other recommendations. During her stay, she had low potassium levels and magnesium levels and those were treated accordingly. She did have signs of JOHN and dehydration. Her abdominal pain was likely related to her current metastatic cancer. Significant pain management would be continued on discharge. For her pulmonary embolism she was continued on a heparin drip and would be switched to Xarelto for discharge. Her hypokalemia resolved. Her iron deficiency and chronic anemia was stable. Thrombocytopenia was stable and will be followed by Dr. Landin as outpatient for her cancer. DISCHARGE LABORATORY DATA: White blood cells 7000, hemoglobin 10, hematocrit 31 , platelet count 134,000. PTT was 76. Sodium 136, potassium 3.6. BUN 5. Creatinine 0.6. Glucose 110. Calcium 8.9, other labs during her stay. Lipase was 12. Her liver enzymes, bilirubin was 0.61. AST 19. ALT 11. Her magnesium was 1.5. Her TSH was 0.54. Folate was 32.5. B12 was 1929. CK 38, troponin less than 0.01. Urinalysis on admit showed moderate leukocytes, 10-20 white blood cells, and negative bacteria. IMAGING STUDIES: Abdominal x-ray on admit, right upper quadrant large calcifications corresponding to calcified nodules in the liver. Small right abdominal calcifications that may be renal stones or could be small calcified nodules in the abdomen. An abdominal pelvic CT, abdomen and pelvis, multiple calcified hepatic masses with all other scattered hypodense hepatic lesions with appearance fairly similar to that of the previous study. Spleen is not enlarged. Calcifications adjacent were within the body of the pancreas are similar. There are multiple calcified paraaortic lymph nodes. There are several noncalcified lymph nodes in the estevan hepatis. kidneys similar to the previous study. No hydronephrosis. No bowel obstruction. No abscess. The bladder is distended and is normal. Impression of the CTA of the chest, right lower lobe pulmonary emboli and worsening lung metastasis. Abdominal x-ray, right upper quadrant large calcifications corresponding to calcified nodules in the liver, small right abdominal calcifications may be renal stones or could be a small calcified nodules in the abdomen. Abdominal pelvic x-ray performed on 01/31/2017, CTA of the chest. Chest showed right lower lobe pulmonary emboli and worsening lung metastasis. The abdomen and pelvis showed fairly stable hepatic and renal metastasis. Stable adenopathy. No bowel obstruction. A lower extremity venous ultrasound on 02/01/2017 showed no evidence of DVT or superficial venous thrombosis in either lower extremity. On 02/02/2017, abdominal x-ray repeated and just showed constipation, calcified or contrast opacified retroperitoneal nodes and hepatic metastasis. DISCHARGE MEDICATIONS: Bisacodyl 10 mg nightly, morphine extended release 90 mg p.o. twice daily. Docusate 100 mg p.o. twice daily. Hyoscyamine sublingual 0.125 q.6 hours, morphine IR 30 mg q.4 hours p.r.n. and MiraLAX 17 g p.o. daily, Phenergan 25 mg q. 6 hours p.r.n., Xarelto 20 mg nightly. DISCHARGE DIET: Soft food diet. DISCHARGE ACTIVITY: Up with assistance and as tolerated. DISPOSITION: Discharged home with home health provided by [facility]. DISCHARGE INSTRUCTIONS: Continue all medications prescribed on discharge. She will need to follow up with Dr. Snell, Dr. Méndez, Dr. Richards, Dr. Landin and Dr. Orr within 4 weeks. Dictated by MARIO Miller for Tom Whitt MD cc: MARIO Miller MD Wilnelsia A. Awoniyi Jason R. Seale, MD Jeanette Keith, MD Naveen T. Lobo, MD [facility] CENTERChuckie
== END 2017-02-07 17:45 | disposition home health service (06) ==
LOC: ED 11:22 → SUATTDRO 16:40 → 4N 16:40 → 3N 19:38
PROVIDERS: ATTEND Internal Medicine

== ENCOUNTER 2017-05-08 02:37 | Inpatient (IN) ==
[2017-05-08] MEDS ORDERED: DILAUDID IV ONE ×4 (02:56→03:57)
[2017-05-08] MEDS ORDERED: ZOFRAN IV ONE (02:57)
[2017-05-08] MEDS ORDERED: DILAUDID ONE ×2 (03:11→03:59)
[2017-05-08 03:17] LABS: MANUAL DIFF NEEDED? NO
[2017-05-08 03:20] LABS: BASO% 0.2 % (0.0-0.8); EOS# 0.03 X1000 (0.0-0.7); EOS% 0.5 % (0.0-10.0); HEMATOCRIT 37.2 % (37.0-47.0); HEMOGLOBIN 12.1 g/dL (12.0-16.0); IMM GRAN# 0.02 X1000 (0.0-0.04); IMM GRAN% 0.3 % (0.0-0.5); LYMPH# 0.93 X1000 (1.2-3.4); LYMPH% 16.2 % (20.5-51.1); MCH 31.3 PG (27-31); MCHC 32.5 g/dL (33-37); MCV 96.1 FL (81-99); MONO# 0.82 X1000 (0.11-0.59); MONO% 14.3 % (1.7-9.3); MPV 10.1 FL (7.4-10.4); NEUT% 68.5 % (42.2-75.2); PLT 118 X1000 (130-400); RBC 3.87 XMIL (4.2-5.4)
[2017-05-08 03:51] LABS: AGAP 13; ALBUMIN 3.4 g/dL (3.5-5.0); ALKALINE PHOSPHATASE 137 U/L (32-104); BUN 6 mg/dL (8-22); CALCIUM 9.1 mg/dL (8.8-10.2); CHLORIDE 100 mmol/L (98-107); COSMO 273; GOT 30 U/L (10-30); GPT 18 U/L (10-36); POTASSIUM 3.9 mmol/L (3.5-5.1); SODIUM 138 mmol/L (136-145); TCO2 25 mmol/L (25-35); TOTAL BILIRUBIN 0.46 mg/dL (0.20-1.00); TOTAL PROTEIN 6.5 g/dL (6.3-8.3)
--- NOTE | 2017-05-08 03:56 | PROVIDER DOCUMENTATION ---
This chart was entered by Elaina Perez Scribe, acting as scribe for Olu Henson MD. HPI-Abdominal Pain/GI Problem - General Chief Complaint: Abdominal Pain Stated Complaint: CANCER PT/ABD PAIN Time Seen by Provider: 05/08/17 02:50 Source: patient Allergies/Adverse Reactions: Patient Allergies Allergy/AdvReac Type Severity Reaction Status Date / Time No Known Allergies Allergy Verified 05/08/17 03:39 Home Medications: Home Medication List Medication Instructions Recorded Confirmed Last Taken Type Morphine E.r. [Ms Contin] 90 mg PO Q12HR #60 tablet 02/07/17 05/08/17 05/08/17 Rx Morphine Ir 30 mg PO Q4H PRN PRN #40 tablet 02/07/17 05/08/17 05/08/17 Rx Rivaroxaban [Xarelto] 20 mg PO WSUPPER #30 tablet 02/07/17 05/07/17 Rx - History of Present Illness-ABD Nature of Presenting Problems: 56 Y/O F presents to ED with ABD pain. Pt has worsening metastatic colon cancer. pt c/o of ABD pain. Pt is on morphine oral at home, states that pain is worsening and passing through her back. Denies N/V/D. Abdominal Pain Onset Location: reports: epigastric Pain Radiation: reports: back Quality of Pain: reports: aching Onset/Duration: reports: this evening Timing: reports: still present Activities at Onset: reports: none Associated Symptoms: reports: back/neck pain. denies: fever/chills, muscle aches, sinus congestion/drainage, nausea, seizure, sensory/motor loss, pain with inspiration, swelling/mass in abdomen, vomiting Review of Systems - Adult - REVIEW OF SYSTEMS - ADULT Constitutional: denies: chills, fever Eyes: reports: no symptoms reported Ears, Nose, Mouth & Throat: reports: no symptoms reported Cardiovascular: reports: no symptoms reported Respiratory: reports: no symptoms reported Gastrointestinal: reports: abdominal pain. denies: diarrhea, nausea, vomiting Genitourinary: denies: discharge, frequency Musculoskeletal: reports: back pain. denies: joint swelling, muscle aches Integumentary: reports: no symptoms reported Neurological: reports: no symptoms reported Psychiatric: reports: no symptoms reported Endocrine: reports: no symptoms reported Hematologic/Lymphatic: reports: no symptoms reported Allergic/Immunologic: reports: no symptoms reported All Other Systems: Reviewed and Negative Past History - Adult - PAST MEDICAL HISTORY-ADULT Review of Records: reports: Old Records Reviewed, Nursing Assessment Review, Medications Reviewed, Social history reviewed & non-contributory. Major Childhood Illnesses: reports: denies history Cardiovascular: reports: denies history Respiratory: reports: denies history Gastrointestinal: reports: cancer (colon stage 4 ) Obstetrical/Gynecological: reports: denies history Genitourinary: reports: denies history Musculoskeletal: reports: denies history Neurological: reports: denies history Endocrine/Immune: reports: denies history Other Conditions: reports: denies history - PRIOR SURGERIES/PROCEDURES Surgical/Procedure History: reports: other (colon resection) - IMMUNIZATION STATUS Childhood Immunizations: See Nurse Assessment Flu Vaccine: See Nurse Assessment - FAMILY HISTORY Family History: reviewed, not pertinent Physical Exam-General - CONSTITUTIONAL General Appearance: alert, mild distress - EYES Eyes: PERRL/EOMI, pink conjunctivae - HEAD, EARS, NOSE, MOUTH & THROAT HENMT: moist mucous membranes, normal ENT inspection, TMs normal, pharynx normal - NECK Neck: non-tender, full range of motion, supple, normal inspection - RESPIRATORY Respiratory: lungs clear, normal breath sounds, other (EPIGASTRIC TENDERNESS) - CARDIOVASCULAR Cardiovascular: normal peripheral pulses, regular rate, rhythm - GASTROINTESTINAL (ABDOMEN) Abdominal Exam: normal bowel sounds, non tender, soft - LYMPHATIC Lymphatic: no adenopathy - MUSCULOSKELETAL Back Exam: normal inspection, no CVA tenderness, no vertebral tenderness Extremity: non-tender - SKIN Integumentary: normal color, normal turgor - PSYCHIATRIC Psych/Mental Status: normal mood/affect, normal thought content, normal thought process, oriented x 3 Progress - PLAN OF CARE/RESULTS Progress/Plan/Lab Results: Vital Signs - 8 hr 05/08/17 02:42 Temperature 97.8 F Pulse Rate 99 H Respiratory Rate 22 Blood Pressure 130/73 O2 Sat by Pulse Oximetry 100 Orders Category Date Time Status FLAT/UPRIGHT ABD/1 VIEW CHEST [RAD] Stat Exams 05/08/17 02:57 Ordered CBC WITH ELECTRONIC DIFF [HEME] Stat Lab 05/08/17 02:57 Uncollected CMP [COMPREHENSIVE METABOLIC PANEL] [CHEM] Stat Lab 05/08/17 02:57 Uncollected LIPASE [CHEM] Stat Lab 05/08/17 02:57 Uncollected Hydromorphone [Dilaudid] Med 05/08/17 02:56 Discontinued 1 mg IV NOW ONE Ondansetron [Zofran] Med 05/08/17 02:57 Discontinued 4 mg IV NOW ONE Result Diagrams: 05/08/17 03:04 05/08/17 03:04 - XRAY 1 XRAY Study: Abdomen Impression: Normal Departure - Departure Date of Disposition Decision: 05/08/17 Time of Disposition Decision: 04:41 DIAGNOSIS: Colon cancer metastasized to multiple sites Disposition: ADMITTED INPATIENT 09 Certified Medical Emergency: Emergent Condition: Fair Referrals and Follow-Ups: Theo Landin MD [Primary Care Provider] - - Critical Care Note This patient required my direct & personal management of CC.: No Attestation - Physician/ CYRIL Attestation Patient care was provided by Advanced Practice Provider:: No The physician spent face to face time with patient:: Yes Advanced Practice Provider documentation review:: Supervising physician onsite and consulted in the evaluation and care of this patient. The physician did have a face to face encounter with the patient. This chart was documented by the indicated scribe, (Elaina Perez Scribe) and accurately reflects the services I performed and decisions made by me, Olu Henson MD, as attested by the provider's signature.
[2017-05-08 04:21] LABS: LIPASE 14 U/L (13-60)
[2017-05-08] MEDS ORDERED: MORPHINE IR PO PRN (05:11)
--- NOTE | 2017-05-08 07:22 | Diag Imaging Result Doc PS360 ---
EXAM: FLAT/UPRIGHT ABD/1 VIEW CHEST HISTORY: epigastric pain, hx metastatic colon cancer TECHNIQUE: Flat and upright abdomen with AP chest COMMENT: There is stool in the colon particularly the ascending and transverse. There is no evidence organomegaly or mass. There are calcifications over the right upper quadrant some of which are associated with rib and is however the somewhat rim like calcification over the dome of the right hemidiaphragm may represent a calcified lesion in the liver. This is visible on the recent CT of 05/02/2017. There is what appears to be Gianturco coil in the midabdomen superiorly. There is a Port-A-Cath on the right in the chest. There are several nodular appearing opacities present over the mid and lower lung field on the right which were apparently present on the previous study of 01/31/2017. No acute abnormalities are demonstrated otherwise. IMPRESSION: No evidence of bowel obstruction. Calcified hepatic metastases. Possibility of small metastatic lesions in the lungs particularly the right lower lobe cannot be excluded. Electronically signed by Landon Arellano 05/08/2017 7:20 AM
[2017-05-08] MEDS: NS 1,000 ML IV SCH (07:46)
[2017-05-08] MEDS: DILAUDID IV PRN ×6 (07:56→23:53)
[2017-05-08] MEDS: ZOFRAN IV PRN ×2 (07:59→10:43)
--- NOTE | 2017-05-08 08:40 | HISTORY AND PHYSICAL ---
CHIEF COMPLAINT: Abdominal pain. PRIMARY CARE PROVIDER: Jose E Richards MD. ONCOLOGIST: Dr. Landin. HISTORY OF PRESENT ILLNESS: Ms. Acosta is a very unfortunate 56-year-old female, who has a stage IV colon cancer with diffuse metastatic disease to the liver and bone. She takes chemotherapy every 2 weeks and is due to have it this coming Sunday. In 2013 she had a left colon resection by Dr. Kwong that was positive for colonic adenocarcinoma. She recently had a CT of her abdomen and pelvis on the of this month which showed increasing metastatic disease to the liver. The patient presents tonight with 10/10 epigastric pain that radiates through to her back. She is known to have mets to her spinal column as well. She was given 4 mg of Dilaudid IV 1 mg at a time over an hour in the emergency room. Her pain is now tolerable and she is resting more comfortably in the ER. She denied nausea and vomiting. She also denied diarrhea. She does state that after every meal she has loose stools and no melena. No hematochezia. Patient also denies dysuria. She does have a history of pulmonary embolism and takes Xarelto 20 mg daily, and a history of iron deficiency anemia. However, she does not take iron supplementation as this time is not anemic. On arrival to the emergency room labs were obtained which were grossly normal. An abdominal x-ray was obtained which showed no acute disease. She will be admitted for further evaluation and treatment. PAST MEDICAL HISTORY: See HPI. PREVIOUS SURGICAL HISTORY: 1. Right Port-A-Cath placement. 2. Partial colon resection and tumor resection. SOCIAL HISTORY: She quit smoking 3 years ago. She stopped using alcohol at the same time. The patient is originally from [place]. Denies illicit drug use or abuse. FAMILY HISTORY: Father from rectal cancer. Mother had coronary artery disease and ultimately from cardiac failure. ALLERGIES: No known drug allergies. HOME MEDICATIONS: 1. MS Contin 90 mg p.o. q.12 hours. 2. Morphine IR 30 mg p.o. q.4 hours. 3. Xarelto 20 mg p.o. with dinner daily. REVIEW OF SYSTEMS: Fourteen point review of systems conducted with the patient. Pertinent positives listed above in the HPI. All other systems reviewed and found to be negative. PHYSICAL EXAMINATION: VITAL SIGNS: Temperature 97.8 degrees, pulse 74, respirations 15, blood pressure 140/77, oxygen saturation 98% on 2 L nasal cannula. GENERAL: A well-developed, well nourished, 56-year-old female, very pleasant lying on the ER stretcher. The pain is now appropriately controlled and she is resting comfortably and is in no acute distress at this time. HEENT: Head is atraumatic, normocephalic. Pupils equal, round, reactive to light. Extraocular eye movement is intact. Sclerae is anicteric. Conjunctivae is pink. Oral mucosa is moist. NECK: Supple. No JVD. No thyromegaly. Trachea is midline. No cervical lymphadenopathy. CARDIAC: S1-S2 appreciated. No murmurs, gallops, rubs. LUNGS: Clear to auscultation bilaterally. No rhonchi, wheezes or rales. ABDOMEN: Soft, nondistended. Slightly tender to palpation. The patient is having epigastric discomfort, mainly bowel sounds hypoactive all 4 quadrants. Old midline abdominal incision. GENITOURINARY: No bladder distention. Patient voids, otherwise deferred. EXTREMITIES: No clubbing, cyanosis, or edema. 2+ pedal pulses bilaterally. SKIN: Warm, very dry and flaking, especially on patient's back which she states is her normal after receiving chemotherapy, but otherwise intact. NEUROLOGICAL: Patient alert and oriented x3. Cranial nerves 2-12 grossly intact. DIAGNOSTIC DATA: Abdominal x-ray NAD, recent CT of the abdomen and pelvis on the showed worsening metastatic disease of the liver, slightly enlarged spleen from previous examination. Small amount of fluid in the pelvis. Stable metastatic lesions of the lung bases and abdominal lymphadenopathy. Slight increase of size of the mass to the inferior aspect of the right adrenal gland. LABORATORY DATA: CBC grossly normal. The chemistry panel within normal limits. Albumin 3.4. ASSESSMENT AND PLAN: 1. Colon cancer with diffuse metastatic disease. Consult Dr. Landin. The patient is still receiving chemotherapy as she is due to receive it this Sunday. Will hold NPO at this time while pain management is underway. Start normal saline at 75 mL an hour. The patient has not noted having nausea. We will place antiemetics on her MAR. We will advance diet as tolerated. 2. Abdominal pain secondary to #1. Continue long-acting and short-acting morphine. Add Dilaudid p.r.n. for breakthrough pain. 3. History of pulmonary embolism. Continue Xarelto 20 mg p.o. daily. 4. History of iron-deficiency anemia, not currently anemic. We will check iron indices. Further recommendations per patient clinical course. Dictated by MARIO Hernandez for Tyrone Levi MD Performed independent examination and assessment on this patient who will be admitted primarily for symptomatic treatment of her pain. cc: MARIO Hernandez MD Moses Awoniyi, MD Naveen T. Lobo, MD MTDD
[2017-05-08] MEDS: MS CONTIN PO SCH ×2 (10:25→23:52)
[2017-05-08] MEDS: XARELTO PO SCH (16:58)
--- NOTE | 2017-05-08 18:25 | CONSULTATION ---
DATE OF CONSULTATION: 05/08/2017 REQUESTING PHYSICIAN: Tom Whitt MD HISTORY OF PRESENT ILLNESS: The patient is a 56-year-old female, who was admitted yesterday with upper abdominal pain. In January, she was admitted to the hospital with severe abdominal pain and was diagnosed to have recurrent disease involving the mesentery causing all her pain. Therefore, a little while, it was difficult to control. Finally after about 4-6 weeks or so, her pain was completely controlled. She was started on FOLFOX chemotherapy which she has tolerated reasonably well. Her CEA climbed up to 42 and most recently was trending down to 28. Her pain has been well controlled in the meanwhile. Now over the last week, she has noticed recurrent pain. She was admitted last night with severe pain. Currently, she appears comfortable on Dilaudid 1 mg p.r.n. PAST MEDICAL HISTORY: History of stage IV colon cancer status post left hemicolectomy in 2013. She initially received FOLFIRI chemotherapy with Avastin and then subsequently with Vectibix. She is status post SIR-Sphere radioembolization to both hepatic lobes. She was initially initiated on FOLFOX on 01/29/2017; however, for almost 6 weeks, she could not receive chemotherapy due to her abdominal pain. Some time at the end of February, she was started on chemotherapy and CEA has responded nicely. ALLERGIES: No known drug allergies. SOCIAL HISTORY: Patient lives in [place]. She denies smoking, alcohol, or substance abuse. FAMILY HISTORY: Noncontributory. REVIEW OF SYSTEMS: She denies cough, shortness of breath or chest pain. She denies nausea or vomiting. She denies blood per rectum or melena. She denies glandular enlargement. Neck axilla or groin. All other review of systems are negative. CURRENT MEDICATIONS: MS Contin 90 mg q.12 hours, MSIR 30 mg q.4 hours p.r.n., Dilaudid 1 mg q.2 hours p.r.n., Xarelto. PHYSICAL EXAMINATION: General: Patient is a well-developed, well-nourished female, currently in no acute distress. Vital Signs: Temperature 98.1 degrees, pulse 58, blood pressure history 95/53. HEENT: Eyes EOMI. PERRLA. Anicteric. Mucous membranes are moist. Cardiac: Regular rate and rhythm. Normal S1, S2. Chest: Clear to auscultation. Abdomen: Soft. Mild epigastric tenderness is noted. No masses. Bowel sounds are normal. Extremities: No cyanosis, clubbing, or edema. Neurological: Alert and oriented x3. No focal motor deficits. LABORATORY DATA: White count 5.7, hemoglobin 12.1, platelets 118,000, BUN 6, creatinine 0.5, LFTs are normal. 05/02/2017, CT of the abdomen pelvis compared to 01/31/2017: Liver mets appears to be larger. Mass at the root of the mesentery appears to be stable. Adrenal gland metastases is stable. Lung metastasis and abdominal lymphadenopathy is stable. ASSESSMENT/PLAN: 1. Metastatic colon cancer: The scan is compared to 01/31/2017. She did not initiate chemotherapy until the end of February. It appears that her lymphadenopathy, adrenal gland and lung mets are stable. Mild increased in liver metastasis. Her CEA has trended down from 42 to 28 suggesting response. Over the last 2 months, her pain has been reasonably well controlled. Now she is having some recurrence and pain. Continue pain management and plan further management accordingly. 2. Pain management: Continue Dilaudid p.r.n. She is on MS Contin 90 mg q.12. Continue same for now. 3. History of pulmonary embolism: Continue Xarelto. cc: MD Tom Gramajo MD
[2017-05-09] MEDS: NS 1,000 ML IV SCH ×2 (00:20→11:33)
[2017-05-09] MEDS: DILAUDID IV PRN ×5 (05:49→19:48)
[2017-05-09 06:49] LABS: INR 1.16; PROTIME 12.3 Seconds (9.2-11.7); PTT 32.4 Seconds (22.0-36.0)
[2017-05-09 06:56] LABS: AGAP 11; BUN 4 mg/dL (8-22); CALCIUM 9.2 mg/dL (8.8-10.2); CHLORIDE 106 mmol/L (98-107); COSMO 281; IRON SATURATION 22 %; POTASSIUM 3.9 mmol/L (3.5-5.1); SODIUM 143 mmol/L (136-145); TCO2 26 mmol/L (25-35); TIBC 233 ug/dL; TOTAL IRON 51 ug/dL (49-151); UNBOUND IRON 182 ug/dL (112-346)
[2017-05-09 07:31] LABS: FERRITIN 1382 ng/mL (13-150)
[2017-05-09] MEDS: MS CONTIN PO SCH ×3 (07:46→21:51)
[2017-05-09] MEDS: ZOFRAN IV PRN ×2 (09:08→21:56)
--- NOTE | 2017-05-09 11:52 | PROGRESS NOTE ---
DATE: 05/09/2017 SUBJECTIVE: This patient is still complaining of lower abdominal pain and epigastric pain, but we have been managing this pain with medications. Compared with admission, she feels a little bit better. Dr. aLndin is following this patient closely and for now we will continue with the same management. Apparently, she is scheduled today for chemotherapy, but I will let Dr. Landin take care about that. OBJECTIVE: Vital Signs: Temperature 97.9 degrees, pulse 62, respiratory rate 19, blood pressure 122/52, oxygen saturation 97% on room air. HEENT: Head normocephalic. No trauma. PERRLA. Neck: Supple. No JVD. No masses. Central trachea. Chest: Clear to auscultation. No wheezing. No rales. Abdomen: Soft, tender to palpation at the level of the lower abdomen and epigastric. Extremities: No edema. No clubbing. No cyanosis. Neurological examination: The patient is alert and oriented x3. No focal deficits. LABORATORY: Sodium 143, potassium 3.9, chloride 106, bicarbonate 26, BUN 4, creatinine 0.5, glucose 78, calcium 9.2. ASSESSMENT AND PLAN: 1. Colon cancer with diffuse metastatic disease. Apparently there is some worsening of the metastasis at the level of the liver, but CEA is going down. Hematology/oncology is following this patient closely; we will continue following their recommendations for now. She will be on normal saline and pain medication. 2. Abdominal pain secondary to #1. Again, we will continue with long-acting and short-acting morphine, and as-needed intravenous medication for breakthrough pain. 3. History of pulmonary embolism. Continue with anticoagulation with Xarelto. 4. History of iron deficiency anemia. Continue with the same management. cc: Tom Whitt MD
[2017-05-09] MEDS: MS CONTIN PO ONE ×2 (13:35→13:37)
--- NOTE | 2017-05-09 14:09 | PROGRESS NOTE ---
DATE: 05/09/2017 SUBJECTIVE: Patient reports that her pain is just as bad. On further review, it appears that her MS Contin dose was not given last night by the nurses because she received a dose of Dilaudid at that time. This morning she received 90 mg of MS Contin as ordered by the hospitalist. The patient reports that she was taking 200 mg of MS Contin q. 12 hours at home. Otherwise, no new complaints. OBJECTIVE: General/Vital Signs: The patient is alert and oriented x3. Temperature 97.9 degrees, pulse 62, blood pressure 122/52. HEENT: Eyes EOMI. PERRLA. Anicteric. Mucous membranes are moist. Cardiac Exam: Regular rate and rhythm. Normal S1, S2. Chest: Clear to auscultation. Abdomen: Soft, nontender, without hepatosplenomegaly or masses. LABS: Iron profile is adequate. Ferritin 1382. ASSESSMENT/PLAN: 1. Metastatic colon adenocarcinoma: Despite her recent scan revealing worsening disease, this may be simply because she was off chemotherapy for a good 6 weeks. She has recently in the last 6 weeks started back on chemotherapy, but CEA has come down from 42 to 28 suggesting response. For now, we will probably continue her on the same chemotherapy. 2. Pain management: It appears that her MS Contin dose has been lowered. I will go back to her usual dose of 200 mg q. 12 hours. Patient reaffirmed this twice in front of me and the nurse. Continue Dilaudid 1-2 mg g q. 2 hours p.r.n. for intermittent pain. 3. History of pulmonary embolism: Continue Xarelto. cc: Theo Landin MD
[2017-05-09] MEDS: XARELTO PO SCH (16:28)
[2017-05-10] MEDS: NS 1,000 ML IV SCH ×2 (01:07→13:39)
[2017-05-10] MEDS: DILAUDID IV PRN ×7 (01:07→22:01)
[2017-05-10 06:19] LABS: MANUAL DIFF NEEDED? NO
[2017-05-10 06:29] LABS: BASO% 0.2 % (0.0-0.8); EOS# 0.09 X1000 (0.0-0.7); HEMATOCRIT 32.4 % (37.0-47.0); HEMOGLOBIN 10.5 g/dL (12.0-16.0); LYMPH# 0.58 X1000 (1.2-3.4); LYMPH% 13.2 % (20.5-51.1); MCH 31.2 PG (27-31); MCHC 32.4 g/dL (33-37); MCV 96.1 FL (81-99); MONO% 18.2 % (1.7-9.3); MPV 9.7 FL (7.4-10.4); NEUT% 66.4 % (42.2-75.2); PLT 111 X1000 (130-400); RBC 3.37 XMIL (4.2-5.4)
[2017-05-10 07:17] LABS: AGAP 9; BUN 4 mg/dL (8-22); CALCIUM 8.1 mg/dL (8.8-10.2); CHLORIDE 105 mmol/L (98-107); COSMO 275; POTASSIUM 3.5 mmol/L (3.5-5.1); SODIUM 140 mmol/L (136-145); TCO2 26 mmol/L (25-35)
[2017-05-10] MEDS: MS CONTIN PO SCH ×2 (09:51→21:35)
--- NOTE | 2017-05-10 16:21 | PROGRESS NOTE ---
DATE: 05/10/2017 SUBJECTIVE: This patient is a little bit better today in the morning. But apparently she had a lot of pain during the night, Dr. Landin is following this patient closely and he has been adjusting her pain medications. No chemotherapy for now. Probably he will restart the chemotherapy after discharge. Once this patient is more stable and the pain is better controlled we are going to be able to discharge this patient home. OBJECTIVE: Vital Signs: Temperature 98 degrees, pulse 68, respiratory rate 16, blood pressure 94/49, oxygen saturation 93 on room air. HEENT: Head normocephalic. No trauma. PERRLA. Neck: Supple. No JVD. No masses. Central trachea. Chest: Clear to auscultation. No wheezing. No rales. Abdomen: Soft, tender to palpation at the level of the lower abdomen and periumbilical area. Multiple abdominal scars. No distention. Positive bowel sounds. Extremities: No edema. No clubbing. No cyanosis. Neurological: The patient is alert and oriented x3. No focal deficits. LABORATORY: WBC 4.4, hemoglobin 10.5, hematocrit 32.4, platelets 111,000. Sodium 140, potassium 3.5, chloride 105, bicarbonate 26, BUN 4, creatinine 0.6, glucose 80, calcium 8.1. ASSESSMENT AND PLAN: 1. Colon cancer with diffuse metastatic. Apparently there is some worsening of metastases at the level of the liver but CEA is going down. Hematology/Oncology is following this patient closely, they have been adjusting her medications. 2. Abdominal pain secondary to #1. Again she will be on long-acting and short-acting morphine and as needed IV medication for breakthrough pain. 3. History of pulmonary embolism. Continue with Xarelto. 4. History of iron deficiency anemia. Continue with the same management. Hemoglobin is 10.5. cc: Tom Whitt MD
[2017-05-10] MEDS: MORPHINE IR PO PRN ×2 (17:19→23:20)
[2017-05-10] MEDS: XARELTO PO SCH (17:29)
[2017-05-10] MEDS: ZOFRAN IV PRN (23:20)
[2017-05-11] MEDS: DILAUDID IV PRN ×5 (01:27→11:12)
[2017-05-11] MEDS: MORPHINE IR PO PRN (04:08)
[2017-05-11] MEDS: NS 1,000 ML IV SCH ×3 (04:09→17:37)
--- NOTE | 2017-05-11 06:51 | PROGRESS NOTE ---
DATE: 05/10/2017 HISTORY OF PRESENT ILLNESS: Patient reports that last night she had a difficult night again. During the daytime it appears that her pain is very well controlled since she is able to receive her pain medicines from the nurses on a timely manner. Otherwise no new complaints. PHYSICAL EXAMINATION: Vital signs: Temperature 97.9 degrees, pulse 69, blood pressure 103/57. Eyes: EOMI. PERRLA. Anicteric. Mucous membranes are moist. Cardiac Exam: Regular rate and rhythm. Normal S1, S2. Chest: Clear to auscultation. Abdomen: Soft with some tenderness in the upper abdomen. No hepatosplenomegaly or masses. Extremities: Without edema. LABORATORY DATA: White count 4.4, hemoglobin 10.5, platelets 111,000. BMP is normal. ASSESSMENT AND PLAN: 1. Metastatic colon carcinoma: For now chemotherapy on hold and plan for followup outpatient. 2. Pain management: Increase MS Contin to 300 mg q.12 hours. Increase MSIR to 60 mg q.4 hours p.r.n. She will take Dilaudid 1-2 mg q.2 hours if the p.o. medicines do not work. Discussed with the nursing customer facilities supervisor so that she gets her pain medicines tonight on time. 3. History of pulmonary embolism: Continue Xarelto. 4. Disposition: As the pain is managed better, we will plan on sending her home. cc: Theo Landin MD
[2017-05-11] MEDS: MS CONTIN PO SCH ×2 (08:34→20:50)
[2017-05-11] MEDS: NEURONTIN PO SCH ×3 (08:36→16:39)
[2017-05-11] MEDS: DILAUDID PO PRN ×7 (09:40→22:05)
[2017-05-11] MEDS: XARELTO PO SCH (16:26)
--- NOTE | 2017-05-11 18:52 | PROGRESS NOTE ---
DATE: 05/11/2017 SUBJECTIVE: This patient is still complaining of belly pain mostly at the level of the left lower quadrant around 9 to 10/10, mostly when she moves or walks, Dr. Landin is taking care of her pain medications. Yesterday they were increased. She denies nausea, vomiting, diarrhea, constipation. OBJECTIVE: Vital Signs: Temperature 97.8 degrees, pulse 80, respiratory rate 18, blood pressure 114/69, oxygen saturation 95 on room air. HEENT: Head normocephalic. No trauma. PERRLA. Neck: Supple. No JVD. No masses. Central trachea. Chest: Clear to auscultation. No wheezing. No rales. Abdomen: Soft, generalized tenderness to palpation but especially at the level of the left lower quadrant around 9 to 10/10. Extremities: No edema. No clubbing. No cyanosis. Neurologic: The patient is alert and oriented x3. No focal deficits. LABORATORY: WBC 4.4, hemoglobin 10.5, hematocrit 32.4, platelets 111,000. Sodium 140, potassium 3.5, chloride 105, bicarbonate 26, BUN 4, creatinine 0.6, glucose 80, calcium 8.1. ASSESSMENT AND PLAN: 1. Colon cancer with metastatic disease. Apparently there is some worsening of metastasis at the level of the liver but CEA is going down. Hematology/Oncology is following this patient closely. She is still complaining of abdominal pain that is around 9 to 10/10 mostly at the level of the left lower quadrant. Continue to monitor. 2. Abdominal pain secondary to #1 as above. 3. History of pulmonary embolism. Continue with Xarelto. 4. History of iron deficiency anemia. Hemoglobin stable. Continue to monitor. cc: Tom Whitt MD
[2017-05-12] MEDS: NS 1,000 ML IV SCH ×2 (00:08→08:05)
[2017-05-12] MEDS: DILAUDID PO PRN ×10 (01:57→21:22)
[2017-05-12] MEDS: DILAUDID IV PRN ×9 (07:30→22:44)
--- NOTE | 2017-05-12 08:35 | PROGRESS NOTE ---
DATE: 05/11/2017 CHIEF COMPLAINT AND HISTORY OF PRESENT ILLNESS: Patient reports that last night she had recurrent pain. She did receive her medicines. Despite that, she required multiple doses. This morning so far so good. She is having her bowel movements. No other complaints. PHYSICAL EXAMINATION: Vital signs: Temperature 98.1 degrees, pulse 78, blood pressure 113/58. HEENT: Eyes: EOMI. PERRLA. Anicteric. Mucous membranes are moist. Cardiac Exam: Regular rate and rhythm. Normal S1, S2. Chest: Clear to auscultation. Abdomen: Soft with some tenderness in the in the mid abdomen. No hepatosplenomegaly or masses. Extremities: No cyanosis, clubbing, or edema. LABS: None. ASSESSMENT/PLAN: 1. Metastatic colon carcinoma: Most recently she is on FOLFOX chemotherapy; while inpatient, on hold. 2. Pain management: Her pain is due to cancer. We will increase her MS Contin to 300 mg q. 12 hours. Continue same. I will discontinue MSIR. We will start her on Dilaudid 8 mg oral every 2 hours p.r.n. She can use intravenous Dilaudid as needed. 3. History of pulmonary embolism: Continue Xarelto. cc: Theo Landin MD MTDD
[2017-05-12] MEDS: NEURONTIN PO SCH ×3 (09:34→22:47)
[2017-05-12] MEDS: MS CONTIN PO SCH ×2 (09:34→20:40)
[2017-05-12] MEDS: DURAGESIC 100 MICROGM/HR PATCH TD SCH (10:35)
[2017-05-12] MEDS ORDERED: DILAUDID IV ONE (13:15)
[2017-05-12] MEDS: XARELTO PO SCH ×2 (14:41→16:47)
--- NOTE | 2017-05-12 17:13 | PROGRESS NOTE ---
DATE: 05/12/2017 SUBJECTIVE: This patient today is complaining of severe abdominal pain 10/10 and she can barely moved because of the pain, we have added a fentanyl patch for this patient and we will continue with her p.o. and IV medications. OBJECTIVE: Vital Signs: Temperature 98.3 degrees, pulse 81, respiratory rate 18, blood pressure 114/55, oxygen saturation 98 on room air. HEENT: Head normocephalic. No trauma. PERRLA. Neck: Supple. No JVD. No masses. Central trachea. Chest: Clear to auscultation. No wheezing. No rales. Abdomen: Soft, generalized tenderness to palpation but especially at the level of the left lower quadrant 10/10. Extremities: No edema. No clubbing. No cyanosis. Neurological: The patient is alert, oriented x3. No focal deficits. LABORATORY: WBC 4.4, hemoglobin 10.5, hematocrit 32.4, platelets 111,000. Sodium 140, potassium 3.5, chloride 105, bicarbonate 26, BUN 4, creatinine 0.6, glucose 80, calcium 8.1. ASSESSMENT AND PLAN: 1. Colon cancer with metastatic disease. Apparently there is some worsening of metastasis at the level of the liver but her CEA is going down. Hematology/oncology is following this patient closely. We have placed this patient on a fentanyl patch but she is still complaining of severe abdominal pain 10/10. 2. Abdominal pain secondary to #1. As above. 3. History of pulmonary embolism. Continue with Xarelto. 4. History of iron-deficiency anemia. Hemoglobin stable. Continue to monitor. cc: Tom Whitt MD
[2017-05-13] MEDS: DILAUDID PO PRN ×9 (00:05→22:40)
[2017-05-13] MEDS: DILAUDID IV PRN ×8 (00:34→18:39)
[2017-05-13] MEDS: NS 1,000 ML IV SCH ×2 (00:35→11:33)
[2017-05-13] MEDS: MS CONTIN PO SCH ×2 (09:29→21:29)
[2017-05-13] MEDS: NEURONTIN PO SCH ×3 (11:30→21:28)
[2017-05-13] MEDS: XARELTO PO SCH ×2 (15:23→18:00)
--- NOTE | 2017-05-13 18:21 | PROGRESS NOTE ---
DATE: 05/13/2017 SUBJECTIVE: This patient looks a little bit better compared with yesterday. Today her pain is 5/10, yesterday it was 10/10. We will continue today with the same treatment. It looks like the fentanyl patch is working at this moment. In case of having more severe pain/intractable pain, we will need to transfer this patient to [facility] to be evaluated by a pain specialist. OBJECTIVE: Vital Signs: Temperature 98.5 degrees, pulse 95, respiratory rate 14, blood pressure 118/69, oxygen saturation 95% on room air. HEENT: Head normocephalic. No trauma. PERRLA. Neck: Supple. No JVD. No masses. Central trachea. Chest: Clear to auscultation. No wheezing. No rales. Abdomen: Soft, generalized tenderness to palpation, but especially at the level of the left lower quadrant. Extremities: No edema. No clubbing. No cyanosis. Neurological: The patient is alert and oriented x 3. No focal deficits. No lab work done today. ASSESSMENT AND PLAN: 1. Colon cancer with metastatic disease. Apparently there is some worsening of metastasis at the level of the liver, but her CEA is going down. Hematology oncology is following this patient closely and they have been managing her pain medication. For now, we will continue monitoring this patient. 2. Abdominal pain secondary to #1 as above. 3. History of pulmonary embolism. Continue with Xarelto. 4. History of iron-deficiency anemia. Continue with the same management. cc: Tom Whitt MD
[2017-05-14] MEDS: DILAUDID PO PRN ×6 (00:57→16:27)
[2017-05-14] MEDS: NS 1,000 ML IV SCH ×2 (01:10→14:01)
[2017-05-14] MEDS: DILAUDID IV PRN ×3 (02:06→18:22)
[2017-05-14 06:26] LABS: MANUAL DIFF NEEDED? NO
[2017-05-14 06:42] LABS: BASO% 0.4 % (0.0-0.8); EOS# 0.09 X1000 (0.0-0.7); EOS% 1.6 % (0.0-10.0); HEMATOCRIT 37.4 % (37.0-47.0); HEMOGLOBIN 11.9 g/dL (12.0-16.0); LYMPH# 0.91 X1000 (1.2-3.4); LYMPH% 16.2 % (20.5-51.1); MCH 30.8 PG (27-31); MCHC 31.8 g/dL (33-37); MCV 96.9 FL (81-99); MONO# 1.01 X1000 (0.11-0.59); MPV 9.5 FL (7.4-10.4); NEUT% 63.8 % (42.2-75.2); PLT 135 X1000 (130-400); RBC 3.86 XMIL (4.2-5.4)
[2017-05-14 07:10] LABS: AGAP 10; BUN 5 mg/dL (8-22); CALCIUM 8.5 mg/dL (8.8-10.2); CHLORIDE 106 mmol/L (98-107); COSMO 281; POTASSIUM 3.9 mmol/L (3.5-5.1); SODIUM 143 mmol/L (136-145); TCO2 27 mmol/L (25-35)
--- NOTE | 2017-05-14 08:52 | PROGRESS NOTE ---
DATE: 05/14/2017 SUBJECTIVE: The patient continues to have severe abdominal pain. She has received almost 8-10 doses of oral Dilaudid 8 mg as well as another 6-8 doses of IV Dilaudid over the last 24 hours. She is still uncomfortable. It appeared that in the morning she seemed to have a better day. However, the rest of the afternoon and the night was not so well controlled. OBJECTIVE: General: Patient appears slightly uncomfortable at this time due to pain. Vital signs: Temperature 98.4 degrees, pulse 81, blood pressure 131/71. HEENT: Eyes: EOMI. PERRLA. Anicteric. Mucous membranes are moist. Cardiac Exam: Regular rate and rhythm. Normal S1, S2. Chest: Clear to auscultation. No wheezes. Abdomen: Nondistended. There is central abdominal discomfort and tenderness. No rebound or guarding. No masses. Extremities: No cyanosis, clubbing, or edema. Neurological: Alert and oriented x3. No focal motor deficits. LABS: White count 5.6, hemoglobin 11.9, platelets 135,000. BUN 10, creatinine 0.5. ASSESSMENT AND PLAN: 1. Metastatic colon cancer colon. Most recently she has received FOLFOX chemotherapy. She was due for it last week, Sunday, but it has been held due to her admission. 2. Pain management: Despite her MS Contin 300 mg q.12 and addition of Duragesic patch 100 mcg her pain is still uncontrolled. She is requiring breakthrough pain medicines about 15-18 times a day. I think she will benefit from a pain pump. We will try to transfer her to [facility] for a pain pump placement. 3. History of pulmonary embolism: On Xarelto. We will discontinue Xarelto. Xarelto has been on hold since 05/13. cc: Theo Landin MD
[2017-05-14] MEDS: MS CONTIN PO SCH ×2 (09:49→22:01)
[2017-05-14] MEDS: NEURONTIN PO SCH ×3 (09:49→22:01)
--- NOTE | 2017-05-14 15:20 | PROGRESS NOTE ---
DATE: 05/14/2017 SUBJECTIVE: She is still complaining of abdominal pain today. She has been evaluated by Dr. Landin and she has been treated for 6 days now and the pain is still there and we have been unable to control it. We would like to transfer this patient to [facility] to be evaluated by a pain doctor. Probably this patient needs a pump to take care of the pain. OBJECTIVE: Vital Signs: Temperature 98.4 degrees, pulse 81, respiratory rate 20, blood pressure 131/71, oxygen saturation 96% on room air. HEENT: Normocephalic. No trauma. PERRLA. Neck: Supple. No JVD. No masses. Central trachea. Chest: Clear to auscultation. No wheezing. No rales. Abdomen: Soft, tender to palpation at the level of the left lower quadrant, 8/10. Extremities: No edema. No clubbing. No cyanosis. Neurological: The patient is alert and oriented x3. No focal deficits. LABORATORY: WBC 5.6, hemoglobin 11.9, hematocrit 37.4, platelet 135,000. Sodium 143, potassium 3.9, chloride 106, bicarbonate 27, BUN 5, creatinine 0.5, glucose 75, calcium 8.5. ASSESSMENT AND PLAN: 1. Colon cancer with metastasis. Apparently, there is some worsening of metastasis at the level of the liver, but her CEA is going down. Hematology/Oncology is following this patient closely and they have been managing her pain medication, and even though she has been on high dose of pain medications p.o. and IV, it is not working. Probably this patient needs to be transferred to [facility] or any other center to see if she can be evaluated by a pain specialist. 2. Abdominal pain secondary to #1, as above. 3. History of pulmonary embolism, on Xarelto. 4. History of iron deficiency anemia. Continue with the same management. cc: Tom Whitt MD
[2017-05-15] MEDS: NS 1,000 ML IV SCH ×4 (01:00→18:44)
[2017-05-15] MEDS: DILAUDID PO PRN ×3 (04:55→18:09)
[2017-05-15] MEDS: MS CONTIN PO SCH ×2 (08:37→20:24)
[2017-05-15] MEDS: DILAUDID IV PRN ×3 (09:53→16:53)
[2017-05-15] MEDS: DURAGESIC 100 MICROGM/HR PATCH TD SCH (09:58)
[2017-05-15] MEDS: NEURONTIN PO SCH ×3 (09:59→18:44)
[2017-05-15] MEDS ORDERED: LACTULOSE PO PRN (09:59)
--- NOTE | 2017-05-15 10:23 | PROGRESS NOTE ---
DATE: 05/15/2017 SUBJECTIVE: This patient is still complaining of abdominal pain but compared with yesterday, it is better. She always asks, 1 time yesterday for IV pain medication. She is tolerating p.o., as per the patient, just bites. No bowel movement yesterday or today so because this patient is getting a lot of narcotics, I will start this patient on MiraLAX twice a day and p.r.n. lactulose. OBJECTIVE: Vital Signs: Temperature 98.6 degrees, pulse 96, respiratory rate 17, blood pressure 148/84, oxygen saturation 96 on room air. HEENT: Head normocephalic. No trauma. PERRLA. Neck: Supple. No JVD. No masses. Central trachea. Chest: Clear to auscultation. No wheezing. No rales. Abdomen: Soft. Tender to palpation at the level of the left lower quadrant and suprapubic area. No signs of peritoneal irritation. Today, the pain is 5 to 6/10. Extremities: No edema. No clubbing. No cyanosis. Neurological Examination: The patient is alert and oriented x3. No focal deficits. Laboratory: WBC 5.6, hemoglobin 11.9, hematocrit 37.4, platelets 135,000. Sodium 143, potassium 3.9, chloride 106, bicarbonate 27, BUN 5, creatinine 0.5, glucose 75, calcium 8.5. ASSESSMENT AND PLAN: 1. Colon cancer with metastasis. Apparently, there is some worsening of metastasis at the level of the liver but her CEA is going down. Hematology/oncology is following this patient closely and they have been managing her pain medication. Yesterday, I personally called [facility] to see if we can get help from a pain doctor. They also contacted Dr. Landin about this patient. We are waiting for answers. 2. Abdominal pain secondary to #1. As above, she is still complaining of pain but she is not asking too much for intravenous pain medication. 3. History of pulmonary embolism. Continue with Xarelto. 4. History of iron deficiency anemia. Continue with the same management. cc: Tom Whitt MD
[2017-05-15] MEDS: MIRALAX PO SCH (20:24)
[2017-05-16] MEDS: NS 1,000 ML IV SCH ×2 (00:40→13:35)
[2017-05-16] MEDS: DILAUDID PO PRN ×6 (04:35→23:37)
[2017-05-16] MEDS: DILAUDID IV PRN ×3 (05:29→12:06)
[2017-05-16] MEDS: MS CONTIN PO SCH ×2 (09:07→20:45)
[2017-05-16] MEDS: NEURONTIN PO SCH ×3 (09:08→16:26)
[2017-05-16] MEDS: MIRALAX PO SCH ×2 (09:08→20:45)
[2017-05-16] MEDS ORDERED: DILAUDID IV ONE (09:45)
[2017-05-16] MEDS: DURAGESIC 100 MICROGM/HR PATCH TD SCH (10:08)
--- NOTE | 2017-05-16 10:16 | PROGRESS NOTE ---
DATE: 05/16/2017 SUBJECTIVE: This patient spent the night without too much pain, but today in the morning she is complaining of pain 10/10 at the level of the lower abdomen. She denies nausea, vomiting, diarrhea or constipation. I have called again [facility] for possible transfer. Probably this patient will need to be evaluated by a pain doctor and potentially she needs to be placed on a ORACLE BUSINESS ANALYST pump. OBJECTIVE: Vital Signs: Temperature 99.8 degrees, pulse 83, respiratory rate 14, blood pressure 116/53, oxygen saturation 98 on room air. HEENT: Head normocephalic. No trauma. PERRLA. Neck: Supple. No JVD. No masses. Central trachea. Chest: Clear to auscultation. No wheezing. No rales. Abdomen: Soft, tender to palpation at the level of the lower abdomen, especially at the level of the left lower quadrant. Positive bowel sounds. Extremities: No edema. No clubbing. No cyanosis. Neurological examination: The patient is alert and oriented x3. No focal neurological deficits. LABORATORY: No lab work done today. ASSESSMENT AND PLAN: 1. Colon cancer with metastasis. Apparently there is some worsening of metastasis at the level of the liver, but her CEA is trending down. Hematology/Oncology is following this patient closely, and they have been managing her pain medications. Two days ago I personally called [facility] to see if we can get help from a pain doctor and transfer this patient over there for a possible ORACLE BUSINESS ANALYST pump placement. Today I called again and they are working on this patient. 2. Abdominal pain secondary to #1 as above. She is still complaining of pain today in the morning. It is 10/10. 3. History of pulmonary embolism. Continue with Xarelto. 4. History of iron deficiency anemia. Continue with the same management. cc: Tom Whitt MD
[2017-05-16] MEDS ORDERED: NARCAN IV PRN (12:57)
[2017-05-16] MEDS: DILAUDID PCA VIAL IV PRN (13:34)
[2017-05-16] MEDS: LR 1,000 ML IV SCH (13:42)
[2017-05-17] MEDS: NS 1,000 ML IV SCH ×3 (00:58→10:35)
[2017-05-17] MEDS: DILAUDID PO PRN ×7 (02:13→22:55)
[2017-05-17 07:04] LABS: MANUAL DIFF NEEDED? NO
[2017-05-17 07:14] LABS: BASO% 0.2 % (0.0-0.8); EOS# 0.07 X1000 (0.0-0.7); EOS% 1.1 % (0.0-10.0); HEMATOCRIT 34.4 % (37.0-47.0); HEMOGLOBIN 11.1 g/dL (12.0-16.0); LYMPH# 0.65 X1000 (1.2-3.4); LYMPH% 10.6 % (20.5-51.1); MCH 31.1 PG (27-31); MCHC 32.3 g/dL (33-37); MCV 96.4 FL (81-99); MONO# 1.04 X1000 (0.11-0.59); MPV 10.2 FL (7.4-10.4); NEUT% 71.1 % (42.2-75.2); PLT 86 X1000 (130-400); RBC 3.57 XMIL (4.2-5.4)
[2017-05-17 07:30] LABS: AGAP 12; BUN 4 mg/dL (8-22); CALCIUM 8.3 mg/dL (8.8-10.2); CHLORIDE 100 mmol/L (98-107); COSMO 272; POTASSIUM 3.3 mmol/L (3.5-5.1); SODIUM 138 mmol/L (136-145); TCO2 26 mmol/L (25-35)
[2017-05-17] MEDS: MIRALAX PO SCH ×2 (08:55→20:35)
[2017-05-17] MEDS: MS CONTIN PO SCH ×2 (08:56→20:35)
[2017-05-17] MEDS: NEURONTIN PO SCH ×3 (08:56→17:35)
[2017-05-17] MEDS ORDERED: POTASSIUM CHLORIDE 40 MEQ/SWI 40 MEQ/100 ML IVPB IV ONE (09:00)
[2017-05-17] MEDS: DILAUDID PCA VIAL IV PRN (09:42)
[2017-05-17] MEDS: LR 1,000 ML IV SCH ×2 (11:46→22:55)
--- NOTE | 2017-05-17 13:30 | PROGRESS NOTE ---
DATE: 05/17/2017 HISTORY OF PRESENT ILLNESS: Patient reports last night she had a tough time. Still having difficulties with getting her oral medicines from the nurses. She is taking her Dilaudid BUILDING CONSTRUCTION SUPERVISOR p.r.n. doses as advised. PHYSICAL EXAMINATION: General Appearance: At present she appears comfortable. Vital Signs: Temperature 98.7 degrees, pulse 83, blood pressure 107/57. Eyes: EOMI. PERRLA. Anicteric. Mucous membranes are moist. Cardiac Examination: Regular rate and rhythm. Normal S1, S2. Chest: Clear to auscultation. Abdomen: Soft, nontender, without hepatosplenomegaly or masses. Extremities: Without edema. LABORATORY DATA: White count 6.1, hemoglobin 11.1, platelets 86,000. ASSESSMENT/PLAN: 1. Pain management: Continue current MS Contin and Duragesic dosing. Again, I have gone over with her regarding using her BUILDING CONSTRUCTION SUPERVISOR pump as advised. She will preferably take oral Dilaudid to control her pain but use BUILDING CONSTRUCTION SUPERVISOR pump as adjunct. We are trying to get her transferred to [facility], but unable to do so due to lack of bed availability. If this continues, we will try to transition her to BUILDING CONSTRUCTION SUPERVISOR and then discharge her home and get her scheduled with pain management outpatient. 2. Stage IV colon cancer: Chemotherapy on hold at this time. cc: Theo Landin MD
--- NOTE | 2017-05-17 15:29 | PROGRESS NOTE ---
DATE: 05/17/2017 SUBJECTIVE: The patient is resting comfortably in bed at this time. She states that she had some difficulty with getting her pain medication on time overnight. However, now she is comfortable. OBJECTIVE: Vital Signs: Temperature 98.7 degrees, blood pressure 95/67, heart rate 105, respirations 20, O2 saturation is 96% on room air. General: This is an elderly female, lying in bed, in no acute distress. Heart: S1, S2. Normal. Regular rate and rhythm. Lungs: Clear to auscultation bilaterally. No wheezing. No rales. No rhonchi. Abdomen: Positive bowel sounds. Soft, nontender, nondistended. Extremities: No edema. No cyanosis. No calf tenderness. Neurologic: The patient is alert and oriented x4. LABS: White blood cell count 6.1, hemoglobin 11, hematocrit 34, platelets 86, 000. Sodium 138, potassium 3.3, chloride 100, CO2 26, BUN 4, creatinine 0.4 glucose 88. ASSESSMENT AND PLAN: 1. Metastatic colon cancer. Dr. Landin is following. The patient receives chemotherapy as outpatient. 2. Intractable abdominal pain. The patient is currently on a Dilaudid GRINDER NEEDLE TIP as well as p.r.n. oral Dilaudid, 200 mcg of fentanyl, and IV Dilaudid as needed. Attempts were made to try and transfer the patient to [facility] to have a pain pump placed. However, the patient was not accepted for transfer. The case was discussed with Dr. Landin and he will contact Dr. Santos, the pain management physician in [place], and make arrangements for the patient to follow up as outpatient to have a pain pump placed. In the meantime we will continue to titrate the patient's pain medication at the discretion of Dr. Landin. 3. Hypokalemia. Will give the patient a dose of potassium chloride today. 4. Constipation. Continue with scheduled laxative therapy. 5. Thrombocytopenia. The patient's platelet count is a little bit lower today. Will continue to monitor this closely. cc: Yvette Mares MD [facility]
--- NOTE | 2017-05-17 15:36 | Diag Imaging Result Doc PS360 ---
EXAM: ABDOMEN FLAT/UPRIGHT HISTORY: constipation TECHNIQUE: Two views COMPARISON: 05/08/2017 FINDINGS: No free air beneath the diaphragm. No organomegaly. There are coils in the mid abdomen. Large calcifications in the right upper quadrant are unchanged. IMPRESSION: No constipation Electronically signed by Sean Cerrato 05/17/2017 3:33 PM
[2017-05-17] MEDS: COLACE PO SCH (20:35)
[2017-05-17] MEDS: LACTULOSE PO SCH (20:35)
[2017-05-18] MEDS: DILAUDID PO PRN ×2 (04:24→21:46)
[2017-05-18 06:38] LABS: AGAP 12; BUN 4 mg/dL (8-22); CALCIUM 8.7 mg/dL (8.8-10.2); CHLORIDE 101 mmol/L (98-107); COSMO 274; HEMATOCRIT 34.8 % (37.0-47.0); HEMOGLOBIN 11.1 g/dL (12.0-16.0); MCH 31.6 PG (27-31); MCHC 31.9 g/dL (33-37); MCV 99.1 FL (81-99); MPV 10.4 FL (7.4-10.4); POTASSIUM 3.7 mmol/L (3.5-5.1); RBC 3.51 XMIL (4.2-5.4); SODIUM 139 mmol/L (136-145); TCO2 26 mmol/L (25-35)
[2017-05-18] MEDS: COLACE PO SCH ×2 (10:19→21:46)
[2017-05-18] MEDS: NEURONTIN PO SCH ×3 (10:19→18:49)
[2017-05-18] MEDS: MS CONTIN PO SCH ×2 (10:19→21:48)
[2017-05-18] MEDS: LACTULOSE PO SCH ×2 (10:20→21:49)
[2017-05-18] MEDS: MIRALAX PO SCH ×2 (10:20→21:48)
--- NOTE | 2017-05-18 17:01 | PROGRESS NOTE ---
DATE: 05/18/2017 SUBJECTIVE: Today Ms. Acosta refers to be doing a little better but she was still hurting. The was at the bedside at the time of the encounter. OBJECTIVE: Vital signs: Blood pressure is 105/56, pulse of 89, respiration is 16, temperature is 98.2 degrees. General: Ms. Acosta is a 56-year-old female. She was in bed. She is not in any distress. HEENT: Mucosa is pink and moist. Anicteric. Acyanotic. Neck: Supple. Chest: Good air entry bilateral. Did not appreciate any rhonchi, crepitations, or any wheezing. Cardiovascular: Regular rate and rhythm. There are no murmurs, no rubs, no gallops. Abdomen: Nontender. Bowel sounds are present. Extremities: No pedal edema. HAM SMOKER: Patient is awake and alert. Oriented and moves all extremities upon commands. LABORATORY DATA: WBC is 6.0, hemoglobin is 11.1, platelet count of 85,000. Chemistry is also reviewed, completely unremarkable. ASSESSMENT: 1. Intractable abdominal pain. The patient is currently on the INVESTMENT CONSULTANT pump. He has been evaluated by Dr. Landin and there is a plan for her to go to [place] on Sunday. 2. Metastatic colon cancer to liver. Patient is on chemotherapy. 3. Constipation. We will continue with bowel regimen. 4. Thrombocytopenia. Stable. I think this is probably related to drug side effects as well as the underlying malignancy itself. So in general I think Ms. Acosta is stable. Her pain is now better controlled on the INVESTMENT CONSULTANT pump. We are going to be following up with further recommendations from Dr. Landin and go from there. cc: Graeme Mitchell MD
[2017-05-18] MEDS: DILAUDID IV PRN (19:36)
--- NOTE | 2017-05-18 21:38 | PROGRESS NOTE ---
DATE: 05/18/2017 SUBJECTIVE: Patient reports that her pain has been much better controlled over the last 24 hours. She is using her CUSTOMER RELATIONS ASSISTANT pump and also oral Dilaudid as needed. She does report some shoulder discomfort this morning. PHYSICAL EXAMINATION: Vital signs: Afebrile. Vital signs are stable. Cardiac Exam: Regular rate and rhythm. Normal S1, S2. Chest: Clear to auscultation. Abdomen: Soft, nontender without hepatosplenomegaly or masses. Extremities: Without edema. Neurologic: Alert and oriented x3. No focal motor deficits. LABORATORY DATA: White count 6.03, hemoglobin 11.1, platelets 85,000. ASSESSMENT AND PLAN: 1. Stage IV colon cancer: Chemotherapy on hold currently. 2. Pain management: Continue MS Contin and Duragesic dosing. Continue current dose of Dilaudid oral and CUSTOMER RELATIONS ASSISTANT pump. Pain seems to be a little bit better controlled. Unfortunately no beds available at [facility] and patient has been unable to be transferred. We will keep her here over the weekend and plan to maybe discharge her on Sunday with CUSTOMER RELATIONS ASSISTANT pump. Maybe we can make her an appointment with pain management in [place] outpatient. cc: Theo Landin MD
[2017-05-18] MEDS: LR 1,000 ML IV SCH (21:46)
[2017-05-19] MEDS: DILAUDID PCA VIAL IV PRN (01:41)
[2017-05-19] MEDS: DILAUDID PO PRN ×4 (03:34→21:22)
[2017-05-19] MEDS: MS CONTIN PO SCH ×2 (09:26→21:23)
[2017-05-19] MEDS: NEURONTIN PO SCH ×3 (09:26→15:59)
[2017-05-19] MEDS: LACTULOSE PO SCH ×2 (09:27→21:24)
[2017-05-19] MEDS: MIRALAX PO SCH ×2 (09:27→21:23)
[2017-05-19] MEDS: COLACE PO SCH ×2 (09:27→21:22)
[2017-05-19] MEDS: DURAGESIC 100 MICROGM/HR PATCH TD SCH (09:27)
[2017-05-19] MEDS: LR 1,000 ML IV SCH ×2 (12:39→19:20)
--- NOTE | 2017-05-19 15:55 | PROGRESS NOTE ---
DATE: 05/19/2017 SUBJECTIVE: Today Ms. Acosta referred to be doing a little better. Pain is a lot better controlled on the pump. OBJECTIVE: Vital signs: Blood pressure is 93/42, pulse of 73, respiration is 16, temperature 98.1 degrees. General: Ms. Acosta is a 56-year-old female. She is in bed, not in any distress. HEENT: Mucosa is pink and moist. Anicteric. Acyanotic. Neck: Supple. Chest: Good air entry bilateral. There is no crepitations, no rhonchi. Cardiovascular: Regular rate and rhythm. There are no murmurs, no rubs. No gallops. Abdomen: Soft, nontender. Bowel sounds are present. There is no hepatosplenomegaly. Extremities: No pedal edema. FABRICATION MANAGER: Patient is awake, alert and oriented and follows commands. LABORATORY DATA: None for today. ASSESSMENT: 1. Intractable abdominal pain. The patient is currently on VEHICLE MAINTENANCE SUPERVISOR pump. There is a plan for her discharge on Sunday to follow up in [place] for outpatient pain management. 2. Constipation. Will continue using the bowel regimen. 3. Thrombocytopenia likely due to drug side effects versus underlying malignancy itself. Will repeat the numbers for tomorrow. cc: Graeme Mitchell MD
[2017-05-20] MEDS: DILAUDID PCA VIAL IV PRN (01:14)
[2017-05-20] MEDS: DILAUDID PO PRN ×4 (01:58→20:42)
[2017-05-20] MEDS: NEURONTIN PO SCH ×3 (08:40→15:59)
[2017-05-20] MEDS: MS CONTIN PO SCH ×2 (08:40→20:41)
[2017-05-20] MEDS: COLACE PO SCH ×2 (08:40→20:41)
[2017-05-20] MEDS: MIRALAX PO SCH ×2 (08:41→20:41)
[2017-05-20] MEDS: LACTULOSE PO SCH ×2 (08:41→20:41)
[2017-05-20] MEDS: LR 1,000 ML IV SCH (13:56)
--- NOTE | 2017-05-20 15:25 | PROGRESS NOTE ---
DATE: 05/20/2017 SUBJECTIVE: This patient is still complaining of pain, even though she is on a pump. She states that she gets better every time she gets an extra dose of pain medication. The plan for now is to hopefully discharge this patient on Sunday to follow up in [place] for outpatient pain management. OBJECTIVE: Vital Signs: Temperature 98.1 degrees, pulse 77, respiratory rate 18, blood pressure 101/42, O2 saturation 95% on room air. HEENT: Head normocephalic. No trauma. PERRLA. Neck: Supple. No JVD. No masses. Central trachea. Chest: Clear to auscultation. No wheezing. No rales. Abdomen: Soft, tender to palpation at the level of the lower abdomen. Positive bowel sounds. Extremities: No edema. No clubbing. No cyanosis. Neurological: The patient is alert and oriented x3. No focal deficits. LABORATORY: No laboratory work done today. ASSESSMENT AND PLAN: 1. Colon cancer with metastasis. Apparently, there is some worsening of metastasis at the level of the liver but her CEA is trending down. Hematology/Oncology is following this patient closely. The plan is to discharge this patient on Sunday to follow up in [place] for outpatient pain management. At this moment she has a BRAILLE TRANSCRIBER pump and she is having episodes of pain that she can control with extra boluses of pain medication. 2. Abdominal pain secondary to #1. As above. 3. History of pulmonary embolism. Continue with Xarelto. 4. History of iron-deficiency anemia. Aware. 5. Constipation. Continue with bowel regimen. cc: Tom Whitt MD
[2017-05-21] MEDS: DILAUDID PCA VIAL IV PRN (00:30)
[2017-05-21] MEDS: DILAUDID PO PRN ×3 (00:37→18:38)
[2017-05-21] MEDS: MS CONTIN PO SCH ×2 (08:10→22:02)
[2017-05-21] MEDS: NEURONTIN PO SCH ×3 (08:11→16:29)
[2017-05-21] MEDS: COLACE PO SCH ×2 (08:13→22:03)
[2017-05-21] MEDS: LACTULOSE PO SCH ×2 (08:13→22:04)
[2017-05-21] MEDS: MIRALAX PO SCH ×2 (08:13→22:04)
[2017-05-21] MEDS: LR 1,000 ML IV SCH (11:41)
--- NOTE | 2017-05-21 15:42 | PROGRESS NOTE ---
DATE: 05/21/2017 SUBJECTIVE: The patient feels like pain is under control. OBJECTIVE: Vital Signs: Blood pressure 108/62, heart rate 77, respiratory rate 21, temperature 98.6 degrees, 100% saturation on room air. Cardiovascular: Regular rate and rhythm. Pulmonary: Bilateral breath sounds. Clear to auscultation. Gastrointestinal: Abdomen soft, nontender, nondistended. Bowel sounds are positive. LABORATORY DATA: No new data today. PROBLEM LIST: 1. Metastatic colon cancer with I am assuming bony metastases and liver metastases. Her current problem is pain control. She is on MS Contin 300 q.12 and a AUTOMOTIVE LUBE TECHNICIAN pump which is just barely keeping her pain under control but it is under control now after difficult titration, but she will be really difficult to be managed without a pain pump or continuous infusion. I have not been able to transfer the patient to [place] for treatment. We are trying to set up a AUTOMOTIVE LUBE TECHNICIAN pump at home. I am not sure if that will happen today. That has not happened yet. 2. History of pulmonary embolism. We will continue Xarelto which we may need to consider holding if she is going to get a pain pump. She will need to be off that for a day or 2. 3. Disposition. Pending clinical issues. Obviously if we cannot transfer her which sounds like that has not been able to be done, then we will set up outpatient therapy. cc: Leopoldo Lenz MD
[2017-05-21] MEDS: LOVENOX SUBQ SCH (16:28)
[2017-05-22] MEDS: DILAUDID PCA VIAL IV PRN (00:26)
[2017-05-22] MEDS: DILAUDID PO PRN ×3 (06:33→19:55)
[2017-05-22] MEDS: LR 1,000 ML IV SCH ×2 (09:51→12:50)
[2017-05-22] MEDS: MS CONTIN PO SCH ×2 (09:53→22:01)
[2017-05-22] MEDS: DURAGESIC 100 MICROGM/HR PATCH TD SCH (09:53)
[2017-05-22] MEDS: NEURONTIN PO SCH ×3 (09:53→21:14)
[2017-05-22] MEDS: MIRALAX PO SCH ×2 (09:54→20:04)
[2017-05-22] MEDS: COLACE PO SCH ×3 (09:54→21:14)
[2017-05-22] MEDS: LACTULOSE PO SCH ×2 (09:55→20:04)
--- NOTE | 2017-05-22 15:22 | PROGRESS NOTE ---
DATE: 05/22/2017 SUBJECTIVE: The patient states that her pain is under better control. She has no complaints at this time. OBJECTIVE: Vital Signs: Temperature 98.9 degrees, blood pressure 115/61, heart rate 72, respirations 18, O2 saturations 94% on room air. General: This is an elderly female, lying in bed, in no acute distress. Heart: S1, S2. Normal. Regular rate and rhythm. Lungs: Clear to auscultation bilaterally. No wheezing. No rales. No rhonchi. Abdomen: Positive bowel sounds. Soft, nontender, nondistended. Extremities: No edema. No cyanosis. No calf tenderness. Neurologic: The patient is alert and oriented x3. LABS: Reviewed. ASSESSMENT AND PLAN: 1. Intractable pain secondary to metastatic colon cancer. The patient's pain is under better control. The patient will be discharged home today on MS Contin 300 mg p.o. every 12 hours, Dilaudid QA AUTOMATION DEVELOPER pump, gabapentin, and oral Dilaudid every 2 hours p.r.n. The patient has an appointment with on 05/24/2017 to have a pain pump placed. [facility] will be providing the patient's IV pain medication. 2. Pulmonary embolism. The patient will be taken off of her Xarelto in anticipation of the pain pump placement in the next several days. She will need to restart the Xarelto once cleared by the painting technician. DISPOSITION: The patient is stable for discharge home today. cc: Yvette Mares MD MTDD
[2017-05-22] MEDS: LOVENOX SUBQ SCH (18:45)
[2017-05-23] MEDS: DILAUDID PCA VIAL IV PRN (01:01)
[2017-05-23] MEDS: DILAUDID PO PRN ×6 (04:52→22:16)
[2017-05-23] MEDS: MS CONTIN PO SCH ×2 (08:33→22:16)
[2017-05-23] MEDS: NEURONTIN PO SCH ×3 (08:33→22:16)
[2017-05-23] MEDS: COLACE PO SCH ×3 (11:38→22:16)
[2017-05-23] MEDS: LACTULOSE PO SCH ×2 (11:39→22:17)
[2017-05-23] MEDS: MIRALAX PO SCH ×3 (11:39→22:17)
[2017-05-23] MEDS: LR 1,000 ML IV SCH (11:41)
[2017-05-23] MEDS: LOVENOX SUBQ SCH (14:25)
[2017-05-23] MEDS ORDERED: DURAGESIC 100 MICROGM/HR PATCH TD SCH (16:45)
[2017-05-23 21:40] VITALS: BP 106/44
--- NOTE | 2017-05-25 12:01 | DISCHARGE SUMMARY ---
ADMISSION DATE: 05/08/2017 DISCHARGE DATE: 05/23/2017 FINAL DISCHARGE DIAGNOSES: 1. Intractable pain secondary to metastatic colon cancer. 2. Pulmonary embolism. 3. Constipation. 4. Thrombocytopenia. CONSULTATION REQUESTED DURING THIS HOSPITAL STAY: Oncology consultation with Dr. Landin. HOSPITAL COURSE: Ms. Acosta is a pleasant 56-year-old female with a history of metastatic colon cancer, who presented to the ER with a chief complaint of intractable abdominal pain. The patient was admitted to the hospitalist service, and the patient was started on a Dilaudid BURGLAR ALARM INSPECTOR pump. Over the course of the hospitalization, multiple analgesics were added to the patient's regimen. Eventually, we were able to get the patient's pain under control with several narcotics in addition to the Dilaudid BURGLAR ALARM INSPECTOR. Due to the patient's dependence on the Dilaudid BURGLAR ALARM INSPECTOR for better pain control, a referral was made to Dr. Danielle Rob, who is statuary painter, and an appointment was set up for the patient to see Dr. Santos on 05/24/2017, to initiate the pain pump implementation. The patient was advised to hold her Xarelto until after the pain pump has been placed. cargo and ramp services manager assisted with getting the patient her pain medications. Ultimately, the patient was cleared for discharge on 05/24/2017. DISCHARGE MEDICATIONS: 1. Dilaudid 8 mg p.o. every 2 hours p.r.n. for pain. 2. Lactulose 30 mL oral daily p.r.n. for constipation. 3. MiraLAX 17 g p.o. twice a day. 4. Neurontin 300 mg p.o. 3 times a day. 5. Duragesic patch 200 mcg transdermal every 72 hours. 6. Colace 100 mg p.o. twice a day. 7. Xarelto 20 mg p.o. daily to be started after the pain pump had been placed. 8. MS Contin 300 mg p.o. every 12 hours. DISCHARGE DIET: Regular diet. ACTIVITY: As tolerated. FOLLOWUP INSTRUCTIONS: The patient will need to follow up with Dr. Landin, as scheduled by his clinic. The patient is scheduled to see Dr. Santos on May 24, 2017, at 10 a.m. to discuss implementation of a pain pump. cc: Yvette Mares MD
== END 2017-05-23 23:15 | disposition home health service (06) ==
LOC: ED 02:37 → SUATTDRO 06:01 → EDIPHOLD 06:01 → 3N 11:51
PROVIDERS: ATTEND Internal Medicine